=== PATIENT | female | born 1955 | race Caucasian/White ===

== ENCOUNTER 2020-09-06 09:29 | Outpatient (REF) | payer OTHER, SELFPAY ==
--- NOTE | 2020-09-06 | MM_ITS ---
EXAMINATION: BONE DENSITOMETRY CLINICAL INDICATION: Age-related osteoporosis without current pathological fracture. COMPARISON: Previous BD dated 08/30/2018 and baseline BD dated 07/29/2006. TECHNIQUE: Using a [id number] DXA System (software version: 13.1) manufactured by [employer], dual-energy x-ray absorptiometry was performed of the lumbar spine and left hip. The images are of good technical quality. Summary results are attached. FINDINGS: AP SPINE L1-L4: Current: BMD 0.824 g/cm2, Z-score -2.7, T-score -3.0, osteoporosis, 3.6% decrease from previous, 2.0% decrease from baseline (<5% change is not significant). Prior: BMD 0.855 g/cm2. Baseline: BMD 0.841 g/cm2. LEFT FEMUR, NECK: Current: BMD 0.567 g/cm2, Z-score -2.8, T-score -3.4, osteoporosis. Prior: BMD 0.766 g/cm2. Baseline: BMD 0.825 g/cm2. LEFT FEMUR, TOTAL: Current: BMD 0.761 g/cm2, Z-score -1.7, T-score -2.0, osteopenia, 13.6% decrease from previous, 20.1% decrease from baseline (<5% change is not significant). Prior: BMD 0.881 g/cm2. Baseline: BMD 0.953 g/cm2. IDENTIFIED RISK FACTORS: Early menopause, secondary osteoporosis, osteoporosis, hysterectomy, bilateral oophorectomy. HISTORY OF FRACTURE: None listed. MEDICATIONS: Multivitamin. MM/XR DEXA axial skeleton IMPRESSION: 1. DIAGNOSIS: Osteoporosis based on the lowest T-score value of -3.4 in the femoral neck applying World Health Organization criteria. 2. 10-YEAR FRACTURE RISK PREDICTION, FRAX: Major osteoporotic fracture (clinical spine, forearm, hip or shoulder) 16.7%. Hip fracture 5.5%. 3. Treatment Recommendations: NOF guidelines recommend consideration for treatment in postmenopausal women and men age 50 and older presenting with the following: -A hip or vertebral (clinical or morphometric) fracture. -T-score less than or equal to -2.5 at the femoral neck or spine after appropriate evaluation to exclude secondary causes. -Low bone mass at the hip or spine and a 10-year fracture probability by FRAX of greater than or equal to 3% for hip fracture or greater than or equal to 20% for major osteoporotic fracture based on the [place] adapted WHO algorithm. 4. Other Recommendations: All treatment decisions require clinical judgment and consideration of individual patient factors, including patient preferences, comorbidities, previous drug use, risk factors not captured in the FRAX model (e.g. frailty, falls, vitamin D deficiency, increased bone turnover, interval significant decline in bone density) and possible under or overestimation of fracture risk by FRAX. Additional medical evaluation for secondary cause of low bone mineral density may be appropriate. FUTURE SCAN RECOMMENDATION: People with diagnosed cases of osteoporosis or at high risk for fracture should have regular bone mineral density tests. For patients eligible for Medicare, routine testing is allowed once every 2 years. The testing frequency can be increased to one year for patients who have rapidly progressing disease, those who are receiving or discontinuing medical therapy to restore bone mass, or have additional risk factors.
== END 2020-09-06 09:30 | disposition home or self-care (01) ==
LOC: HO.MAMMO 09:29
PROVIDERS: Visit Provider Internal Medicine
DX: M81.0 Age-related osteoporosis without current pathological fracture (principal)
CPT/HCPCS: 77080

== ENCOUNTER 2021-02-28 10:51 | Outpatient (REF) | payer OTHER, SELFPAY | END 2021-02-28 10:52 | disposition home or self-care (01) | LOC: HO.LNP 10:51 | PROVIDERS: PCP Internal Medicine; Visit Provider Internal Medicine | DX: Z13.89 Encounter for screening for other disorder (principal) ==

== ENCOUNTER 2021-02-28 10:52 | Outpatient (REF) | payer OTHER, SELFPAY ==
[2021-02-28 10:58] LABS: MANUAL DIFF FLAG NO
[2021-02-28 12:22] LABS: Basophils Absolute Auto 0.1 X10*3/uL (0.0-0.2); Basophils Percent Auto 0.5 % (0-2); Eosinophils Absolute Auto 0.2 X10*3/uL (0.0-0.4); Eosinophils Percent Auto 2.1 % (0-4); Hematocrit 39.6 % (37-47); Hemoglobin 12.8 g/dl (12.0-16.0); Imm Gran Abs Auto 0.03 X10*3/uL (0.00-0.03); Imm Gran Pct Auto 0.3 % (0.0-0.4); Lymphocytes Absolute Auto 3.2 X10*3/uL (1.2-4.9); Mean Corpuscular HGB Conc 32.3 g/dl (31.0-35.0); Mean Corpuscular Volume 89.6 fL (80-98); Mean Platelet Volume 10.3 fL (9.4-12.3); Monocytes Absolute Auto 0.8 X10*3/uL (0.1-1.2); Neutrophils Absolute Auto 6.7 X10*3/uL (2.0-8.3); Neutrophils Percent Auto 61.1 % (45-73); Platelet Count 344 X10*3/uL (160-400); Red Blood Count 4.42 X10*6/uL (4.20-5.50); Red Cell Distribution Width 14.6 % (11.0-16.0); White Blood Count 10.9 X10*3/uL (4.8-10.8)
[2021-02-28 12:28] LABS: Estimated Average Glucose 160 mg/dL; Hemoglobin A1c % 7.2 %
[2021-02-28 12:55] LABS: Alanine Aminotransferase 27 U/L (0-31); Albumin Level 4.1 g/dL (3.5-5.0); Alkaline Phosphatase 72 U/L (39-117); Anion Gap 17 (12-20); Aspartate Amino Transferase 26 U/L (5-31); Bilirubin Total 0.7 mg/dL (0.0-1.0); Blood Urea Nitrogen 18 mg/dL (9-16); Calcium 9.7 mg/dL (8.4-10.2); Carbon Dioxide 23 mmol/L (22-29); Chloride 105 mmol/L (96-108); Cholesterol 111 mg/dL; Estimated Glomerular Filt Rate > 60; Glucose Fasting 82 mg/dL (60-99); HDL Cholesterol 64 mg/dL; LDL Cholesterol Calculated 17 mg/dl; Potassium 3.9 mmol/L (3.3-5.1); Sodium 141 mmol/L (135-145); Total Protein 7.2 g/dL (6.5-8.0); Triglycerides 151 mg/dL
[2021-02-28 12:57] LABS: Glucose Urine UA NEG (NEG); Leukocyte Esterase Urine NEG (NEG); Nitrite Urine NEG (NEG); PH 5.5 (5.0-8.0); Specific Gravity - Urine 1.025 (1.005-1.025); Urine Blood NEG (NEG); Urine Ketones NEG (NEG); Urine Protein NEG (NEG-TRACE)
[2021-02-28 13:07] LABS: Appearance Urine CLEAR; Color Urine YELLOW
[2021-02-28 13:33] LABS: Microalbum/Creatinine Ratio Ur 21.1 ug/mg cr
[2021-02-28 13:41] LABS: Reflex LDLD? No
== END 2021-02-28 10:53 | disposition home or self-care (01) ==
LOC: HO.LNP 10:52
PROVIDERS: Visit Provider Internal Medicine
DX: Z00.00 Encounter for general adult medical examination without abnormal findings (principal); I10 Essential (primary) hypertension; E78.00 Pure hypercholesterolemia, unspecified; E11.9 Type 2 diabetes mellitus without complications
CPT/HCPCS: 80053; 80061; 81003; 82043; 83036; 85025

== ENCOUNTER 2021-06-12 10:19 | Outpatient (REF) | payer OTHER, SELFPAY ==
[2021-06-12 11:17] LABS: Estimated Average Glucose 192 mg/dL; Hemoglobin A1c % 8.3 %
[2021-06-12 11:30] LABS: Alanine Aminotransferase 35 U/L (0-31); Albumin Level 4.1 g/dL (3.5-5.0); Alkaline Phosphatase 73 U/L (39-117); Aspartate Amino Transferase 29 U/L (5-31); Bilirubin Direct 0.3 mg/dL (0.0-0.5); Bilirubin Total 0.7 mg/dL (0.0-1.0); Cholesterol 115 mg/dL; Glucose Fasting 79 mg/dL (60-99); HDL Cholesterol 68 mg/dL; LDL Cholesterol Calculated 26 mg/dl; Total Protein 7.1 g/dL (6.5-8.0); Triglycerides 108 mg/dL
[2021-06-12 12:14] LABS: Reflex LDLD? No
== END 2021-06-12 10:20 | disposition home or self-care (01) ==
LOC: HO.LNP 10:19
PROVIDERS: Visit Provider Internal Medicine
DX: E11.9 Type 2 diabetes mellitus without complications (principal); E78.00 Pure hypercholesterolemia, unspecified
CPT/HCPCS: 80061; 80076; 82947; 83036

== ENCOUNTER 2021-11-04 13:52 | Emergency (ER) | payer OTHER, SELFPAY ==
--- NOTE | ~2021-11-04 | XR_ITS ---
EXAMINATION: XR CHEST CLINICAL INFORMATION: Shortness of breath COMPARISON: Previous chest x-ray most recent December 2016 TECHNIQUE: Frontal view of the chest was obtained. FINDINGS: The cardiac and mediastinal contours are stable. There are increased central hilar lung markings. Differential would include airways disease, atypical interstitial pneumonia and pulmonary venous redistribution/mild pulmonary edema. There is linear scarring or subsegmental atelectasis in the right upper lobe. The lungs are otherwise clear. There is no pleural effusion or pneumothorax. There are degenerative changes of the spine. XR/XR chest 1V IMPRESSION: Increased central hilar markings. Differential would include airways disease/bronchial wall thickening, atypical interstitial pneumonia and pulmonary edema.
[2021-11-04 15:13] VITALS: BP 146/76; PULSE 89; RESP 19; TEMP 36.5; O2SAT 96; BMI 39.3
[2021-11-04 15:36] LABS: MANUAL DIFF FLAG NO
[2021-11-04 15:38] LABS: Basophils Percent Auto 0.3 % (0-2); Hematocrit 39.9 % (37.0-47.0); Hemoglobin 12.8 g/dl (12.0-16.0); Imm Gran Abs Auto 0.02 X10*3/uL (0.00-0.03); Imm Gran Pct Auto 0.3 % (0.0-0.4); Lymphocytes Absolute Auto 0.7 X10*3/uL (1.2-4.9); Lymphocytes Percent Auto 11.1 % (20-40); Mean Corpuscular HGB Conc 32.1 g/dl (31.0-35.0); Mean Corpuscular Hemoglobin 29.2 pg (27.0-33.0); Mean Corpuscular Volume 90.9 fL (80.0-98.0); Mean Platelet Volume 9.8 fL (9.4-12.3); Monocytes Absolute Auto 0.5 X10*3/uL (0.1-1.2); Monocytes Percent Auto 7.8 % (2-11); Neutrophils Absolute Auto 5.2 x10*3/uL (2.0-8.3); Neutrophils Percent Auto 80.5 % (45-73); Platelet Count 262 X10*3/uL (160-400); Red Blood Count 4.39 X10*6/uL (4.20-5.50); Red Cell Distribution Width 14.7 % (11.0-16.0); White Blood Count 6.4 X10*3/uL (4.8-10.8)
[2021-11-04 15:55] LABS: Anion Gap 16 (12-20); Blood Urea Nitrogen 10 mg/dL (9-16); Carbon Dioxide 25 mmol/L (22-29); Chloride 100 mmol/L (96-108); Creatinine Clr Calc Pharmacy 64.5; Estimated Glomerular Filt Rate 59; Glucose Random 258 mg/dL (60-115); Potassium 3.8 mmol/L (3.3-5.1); Sodium 137 mmol/L (135-145)
[2021-11-04 16:04] LABS: B Type Natriuretic Peptide 12 pg/mL (<100)
[2021-11-04 21:00] VITALS: BP 159/77; PULSE 85; RESP 18; TEMP 36.7; O2SAT 95
--- NOTE | 2021-11-04 21:14 | ED.SOB ---
HPI - SOB/Dyspnea General Chief Complaint: Dyspnea Stated Complaint: Pneumonia Time Seen by Provider: 11/04/21 21:14 Source: patient Mode of arrival: ambulatory Limitations: no limitations History of Present Illness HPI Narrative: Patient with history of asthma already vaccinated against COVID not received a booster dose diagnosed with COVID 10 days ago complaining of increased dry cough for last 4 days speech limited she takes a deep breath no chest pain no fever no loss of taste sensation patient has not received any steroids during the course of COVID patient trying to use inhaler without much relief Related Data Previous Rx's Medication Instructions Recorded codeine 10 mg-guaifenesin 100 mg/5 10 ml PO Q6-8H PRN #237 ml 11/04/21 mL oral liquid dexamethasone 6 mg tablet 6 mg PO DAILY #6 tab 11/04/21 (Decadron) Allergies Allergy/AdvReac Type Severity Reaction Status Date / Time No Known Allergies Allergy Verified 11/04/21 15:13 Review of Systems Review of Systems: Yes all other systems are reviewed and are negative [facility] Past Medical History Medical History Asthma CAD (coronary artery disease) Diabetes Rheumatoid arthritis Social History Social History Alcohol intake: never Use of substances other than those prescribed or required for medical reasons: No Advance Directives: No Advance Directives Information Provided: No Patient : No Physical Exam Vital Signs: Vital Signs: Last Vital Signs Temp 98.2 F 11/04/21 23:39 Pulse 85 11/05/21 00:16 Resp 18 11/05/21 00:16 BP 125/83 11/04/21 23:39 Pulse Ox 91 L 11/04/21 23:39 BMI result Body Mass Index 39.3 Appearance: Alert. Oriented X3. No acute distress. Eyes: No pallor or icterus ENT: Pharynx normal. Oral Mucosa moist Neck: Normal inspection. Neck supple. CVS: Normal heart rate and rhythm. Pulses normal. Respiratory: No respiratory distress. Equal air entry bilateral, bilateral wheezing and rhonchi increased dry cough on deep inspiration Abdomen: Soft and nontender. Bowel sounds are present, no mass palpable, no CVA tenderness Skin: Skin warm and dry. Normal skin color. Normal skin turgor. Extremities: No lower extremity edema. No calf tenderness Neuro: Oriented X 3. MDM - SOB/Dyspnea Lab Data Result diagrams: 11/04/21 15:30 11/04/21 15:30 Labs: Lab Results 11/04/21 11/04/21 11/04/21 Range/Units 15:30 15:30 15:30 WBC 6.4 (4.8-10.8) X10*3/uL RBC 4.39 (4.20-5.50) X10*6/uL Hgb 12.8 (12.0-16.0) g/dl Hct 39.9 (37.0-47.0) % MCV 90.9 (80.0-98.0) fL MCH 29.2 (27.0-33.0) pg MCHC 32.1 (31.0-35.0) g/dl RDW 14.7 (11.0-16.0) % Plt Count 262 (160-400) X10*3/uL MPV 9.8 (9.4-12.3) fL Immature Gran % (Auto) 0.3 (0.0-0.4) % Neut % (Auto) 80.5 H (45-73) % Lymph % (Auto) 11.1 L (20-40) % [place] % (Auto) 7.8 (2-11) % Eos % (Auto) 0.0 (0-4) % Baso % (Auto) 0.3 (0-2) % Lymph # (Auto) 0.7 L (1.2-4.9) X10*3/uL [place] # (Auto) 0.5 (0.1-1.2) X10*3/uL Eos # (Auto) 0.0 (0.0-0.4) X10*3/uL Baso # (Auto) 0.0 (0.0-0.2) X10*3/uL Abs Immat Gran (auto) 0.02 (0.00-0.03) X10*3/uL Absolute Neuts (auto) 5.2 (2.0-8.3) x10*3/uL Absolute Nucleated RBC 0.000 (0.0-0.012) X10*3/uL Nucleated RBC % (auto) 0.0 (0.0-0.2) /100WBC Sodium 137 (135-145) mmol/L Potassium 3.8 (3.3-5.1) mmol/L Chloride 100 (96-108) mmol/L Carbon Dioxide 25 (22-29) mmol/L Anion Gap 16 (12-20) BUN 10 (9-16) mg/dL Creatinine 0.96 (0.5-1.4) mg/dL Estim Creat Clear Calc 64.5 Estimated GFR 59 Random Glucose 258 H (60-115) mg/dL Calcium 9.0 D (8.4-10.2) mg/dL B-Natriuretic Peptide 12 (<100) pg/mL COVID-19 (GERI) (Negative) COVID-19 Clin Com 11/04/21 Range/Units 23:38 WBC (4.8-10.8) X10*3/uL RBC (4.20-5.50) X10*6/uL Hgb (12.0-16.0) g/dl Hct (37.0-47.0) % MCV (80.0-98.0) fL MCH (27.0-33.0) pg MCHC (31.0-35.0) g/dl RDW (11.0-16.0) % Plt Count (160-400) X10*3/uL MPV (9.4-12.3) fL Immature Gran % (Auto) (0.0-0.4) % Neut % (Auto) (45-73) % Lymph % (Auto) (20-40) % [place] % (Auto) (2-11) % Eos % (Auto) (0-4) % Baso % (Auto) (0-2) % Lymph # (Auto) (1.2-4.9) X10*3/uL [place] # (Auto) (0.1-1.2) X10*3/uL Eos # (Auto) (0.0-0.4) X10*3/uL Baso # (Auto) (0.0-0.2) X10*3/uL Abs Immat Gran (auto) (0.00-0.03) X10*3/uL Absolute Neuts (auto) (2.0-8.3) x10*3/uL Absolute Nucleated RBC (0.0-0.012) X10*3/uL Nucleated RBC % (auto) (0.0-0.2) /100WBC Sodium (135-145) mmol/L Potassium (3.3-5.1) mmol/L Chloride (96-108) mmol/L Carbon Dioxide (22-29) mmol/L Anion Gap (12-20) BUN (9-16) mg/dL Creatinine (0.5-1.4) mg/dL Estim Creat Clear Calc Estimated GFR Random Glucose (60-115) mg/dL Calcium (8.4-10.2) mg/dL B-Natriuretic Peptide (<100) pg/mL COVID-19 (GERI) Positive A (Negative) COVID-19 Clin Com See Note Discharge Plan Discharge Clinical Impression: Acute asthmatic bronchitis Patient Disposition: Home, Self-Care Instructions: Asthma (ED), Acute Bronchitis (ED) Additional Instructions: Continues inhaler/nebulizing treatment every 4-6 hours as needed Decadron as advised Check blood sugar it may increase after taking steroids and increase the dose of insulin to 35 units while taking Decadron Cough syrup as prescribed Report to the ER/PCP if not better Prescriptions: New dexamethasone [Decadron] 6 mg tablet 6 mg PO DAILY Qty: 6 0RF codeine-guaifenesin 10-100 mg/5 mL liquid 10 ml PO Q6-8H PRN (Reason: Cough) Qty: 237 0RF
--- NOTE | 2021-11-04 21:31 | PC.NURSE ---
called respiratory for updraft, they will be down shortly
[2021-11-04] MEDS: dexAMETHasone 2 MG TABLET 10 MG PO (21:48)
[2021-11-04] MEDS: guaiFEN/Codeine SF 200/20/10ML 10 ML LIQUID PO (21:48)
[2021-11-04 21:49] VITALS: BP 137/70; PULSE 76; RESP 18; TEMP 36.9; O2SAT 95
--- NOTE | 2021-11-04 21:50 | PC.NURSE ---
patient a&ox3, vss, no c/o pain or discomfort, pt medicated per order, will continue to monitor
[2021-11-04] MEDS: Albuterol Sulfate (0.083%) 2.5 MG/3 ML VIAL.NEB 5 MG INHALE ×2 (22:02→22:06)
[2021-11-04] MEDS: Albuterol/Iprat 2.5/0.5MG 3 ML AMPUL.NEB INHALE ×2 (22:02→22:06)
[2021-11-04 22:09] VITALS: PULSE 68; RESP 18; O2SAT 100
--- NOTE | 2021-11-04 23:15 | PC.NURSE ---
pt a&ox3, reports symptoms have improved with breathing treatments, still has dry cough and occasional SOB, vss.
[2021-11-04 23:39] VITALS: BP 125/83; PULSE 89; RESP 16; TEMP 36.8; O2SAT 91
[2021-11-04 23:59] LABS: COVID-19 Test Positive (Negative)
[2021-11-05] MEDS: Albuterol Sulfate (0.083%) 2.5 MG/3 ML VIAL.NEB 5 MG INHALE (00:14)
[2021-11-05 00:16] VITALS: PULSE 85; RESP 18; O2SAT 95
[2021-11-05 00:55] VITALS: BP 146/59; PULSE 97; RESP 18; O2SAT 94
== END 2021-11-05 01:06 | disposition home or self-care (01) ==
PROVIDERS: Emergency Provider Internal Medicine; PCP Internal Medicine
DX: J18.9 Pneumonia, unspecified organism (principal); J45.909 Unspecified asthma, uncomplicated; R06.00 Dyspnea, unspecified; I25.10 Atherosclerotic heart disease of native coronary artery without angina pectoris; Z20.822 Contact with and (suspected) exposure to COVID-19; Z79.899 Other long term (current) drug therapy
CPT/HCPCS: 36415; 71045; 80048; 83880; 85025; 87635; 94640; 94644; 99284; 99285; J8540

== ENCOUNTER 2022-03-10 11:06 | Outpatient (REF) | payer OTHER, SELFPAY ==
[2022-03-10 11:10] LABS: MANUAL DIFF FLAG NO
[2022-03-10 11:20] LABS: Basophils Absolute Auto 0.1 X10*3/uL (0.0-0.2); Basophils Percent Auto 0.5 % (0-2); Eosinophils Absolute Auto 0.3 X10*3/uL (0.0-0.4); Eosinophils Percent Auto 2.7 % (0-4); Hematocrit 38.2 % (37.0-47.0); Hemoglobin 12.6 g/dl (12.0-16.0); Imm Gran Abs Auto 0.02 X10*3/uL (0.00-0.03); Imm Gran Pct Auto 0.2 % (0.0-0.4); Lymphocytes Absolute Auto 2.5 X10*3/uL (1.2-4.9); Lymphocytes Percent Auto 26.2 % (20-40); Mean Corpuscular Hemoglobin 30.5 pg (27.0-33.0); Mean Corpuscular Volume 92.5 fL (80.0-98.0); Mean Platelet Volume 10.6 fL (9.4-12.3); Monocytes Absolute Auto 0.6 X10*3/uL (0.1-1.2); Monocytes Percent Auto 5.9 % (2-11); Neutrophils Absolute Auto 6.1 x10*3/uL (2.0-8.3); Neutrophils Percent Auto 64.5 % (45-73); Platelet Count 315 X10*3/uL (160-400); Red Blood Count 4.13 X10*6/uL (4.20-5.50); Red Cell Distribution Width 14.6 % (11.0-16.0); White Blood Count 9.5 X10*3/uL (4.8-10.8)
[2022-03-10 11:23] LABS: Appearance Urine HAZY; Color Urine YELLOW; Glucose Urine UA NEG (NEG); Leukocyte Esterase Urine NEG (NEG); Nitrite Urine NEG (NEG); PH 5.5 (5.0-8.0); Specific Gravity - Urine >= 1.030 (1.005-1.025); Urine Blood TRACE (NEG); Urine Ketones NEG (NEG); Urine Protein TRACE MG/DL (NEG-TRACE)
[2022-03-10 11:32] LABS: Mucus Urine 2+ /LPF; Squamous Epithelial Cell Urine 1+ /LPF; WBC Urine 0 /HPF (0-4)
[2022-03-10 11:33] LABS: RBC Urine 0-2 /HPF (0)
[2022-03-10 11:39] LABS: Alanine Aminotransferase 35 U/L (0-31); Albumin Level 4.1 g/dL (3.5-5.0); Alkaline Phosphatase 72 U/L (39-117); Anion Gap 13 (12-20); Aspartate Amino Transferase 33 U/L (5-31); Bilirubin Total 0.6 mg/dL (0.0-1.0); Blood Urea Nitrogen 15 mg/dL (9-16); Calcium 9.6 mg/dL (8.4-10.2); Carbon Dioxide 27 mmol/L (22-29); Chloride 103 mmol/L (96-108); Cholesterol 119 mg/dL; Estimated Average Glucose 180 mg/dL; Estimated Glomerular Filt Rate > 60; Glucose Fasting 123 mg/dL (60-99); HDL Cholesterol 57 mg/dL; Hemoglobin A1c % 7.9 %; LDL Cholesterol Calculated 31 mg/dl; Potassium 3.9 mmol/L (3.3-5.1); Sodium 139 mmol/L (135-145); Total Protein 7.2 g/dL (6.5-8.0); Triglycerides 157 mg/dL
[2022-03-10 12:28] LABS: Creatinine Urine 205.12 mg/dL; Microalbum/Creatinine Ratio Ur 22.4 ug/mg cr
== END 2022-03-10 11:07 | disposition home or self-care (01) ==
LOC: HO.LNP 11:06
PROVIDERS: Visit Provider Internal Medicine
DX: E11.9 Type 2 diabetes mellitus without complications (principal); E78.00 Pure hypercholesterolemia, unspecified; I10 Essential (primary) hypertension
CPT/HCPCS: 80053; 80061; 81001; 82043; 83036; 85025

== ENCOUNTER → 2022-06-03 09:46 | Outpatient (BNVA) | payer OTHER, SELFPAY | PROVIDERS: PCP Internal Medicine; Visit Provider Internal Medicine Cardiovascular Disease | DX: I25.10 Atherosclerotic heart disease of native coronary artery without angina pectoris (principal); I10 Essential (primary) hypertension | CPT/HCPCS: 93005 ==

== ENCOUNTER → 2022-07-02 12:49 | Outpatient (REF) | payer OTHER, SELFPAY ==
--- NOTE | 2022-07-02 12:53 | CA_ITS ---
Transthoracic Echocardiogram Patient (Last, First, Middle): Kathie Nelson M Gender: Female Date of : 1955 Age: 66 Procedure Date: 07/02/2022 Procedure Type: Transthoracic Echocardiogram Location: OP Height: 157.48 cm Weight: 98.88 kg BSA: 1.98 m2 Heart Rate: 77 bpm BP: 128 / 72 mmHg [employer]: DAYTON Referring MD: Law Capps MD Litigation Attorney: Law Capps MD Symptoms: I10 - Essential (primary) hypertension Study Quality: Adequate w contrast ECG Rhythm: Sinus Conclusions: - 1. Normal LV systolic function with impaired relaxation filling pattern 2. Normal cardiac valvular Doppler 3. No gross pericardial effusion Findings Procedure Information Contrast agent, definity, is being given per protocol without apparent complications. Left Ventricle Normal left ventricular size, thickness, and systolic function. The visually estimated ejection fraction is between 65-70%. Spectral Doppler is indicative of an impaired relaxation filling pattern. E/E prime ratio is between 8 and 15 consistent with indeterminate filling pressures. Right Ventricle The right ventricle was not well visualized. Atria The left atrium is normal in size. Interatrial shunt cannot be excluded. The right atrium was not well visualized. Aortic Valve The aortic valve was not well visualized. There is no aortic valve stenosis. There is no aortic valve regurgitation. Mitral Valve Likely normal mitral valve structure and function. There is trace mitral valve regurgitation. There is no mitral valve stenosis. Pulmonic Valve The pulmonic valve was not well visualized. Tricuspid Valve The tricuspid valve was not well visualized. Tricuspid regurgitation envelope is inadequate for calculation of right ventricular systolic pressure. Normal right atrial pressure. Great Vessels All visible segments of the aorta are normal in size. The pulmonary artery was not well visualized. Venous The inferior vena cava is normal in size and collapses greater than 50% with inspiration. Pericardium/Pleural There is no evidence of pericardial effusion. Prior Study Comparison No prior study available for comparison. Measurements 2D Linear Measurements IVSd: 0.63 0.6-0.9/0.6-1.0 cm LVIDd: 4.52 3.9-5.3/4.2-5.9 cm LVIDd Index: 2.28 2.4-3.2/2.2-3.1 cm/m2 LVIDs: 2.74 2.0-3.6 cm LVPWd: 0.65 0.7-1.1 cm LA Diam: 3.30 2.7-3.8/3.0-4.0 cm LAIDs Index: 1.67 1.5-2.3 cm/m2 LV Mass: 106.56 67-162/88-224 g LV Mass Index: 53.82 43-95/49-115 g/m2 LVOT Diam: 1.90 3.0+(-)1.3 cm 2D Systolic Function EF 4C: 60.40 >55% EF 2C: 72.10 >55% EF BiP: 67.30 >55% Mitral Valve MV Pk E: 1.07 MV PK A: 0.93 MV Decel Time: 224.00 E/A: 1.10 E'Lateral: 10.90 E'Medial: 5.00 E/E' Med: 21.40 E/E' Lat: 9.80 PHT: 65.00 MVA PHT: 3.38 Decel Leake: 4.77 Aortic Valve AoV Pk Jean-Claude: 1.50 AoV Mn Jean-Claude: 1.03 AoV VTI: 0.32 AoV Pk Grad: 9.00 Aov Mn Grad: 5.00 MICHELLE Cont.VTI: 1.88 LVOT LVOT Pk Jean-Claude: 0.89 LVOT Mn Jean-Claude: 0.61 LVOT VTI: 0.21 LVOT Pk Grad: 3.00 LVOT Mn Grad: 2.00 LVOT Diam: 1.90 LVOT Area: 2.84 Diastolic Function MV Pk E: 1.07 MV Pk A: 0.93 E/A: 1.10 E'Medial: 5.00 E/E' Med: 21.40 E' Laterial: 10.90 E/E' Lat: 9.80 Right Ventricle TAPSE (mm): 21.90 TVS' Jean-Claude: 10.80 Tricuspid Valve RA Press: 3.00 Great Vessels Aorta Sinus of Valsalva: 2.70 2.0-3.5 cm Ao Asc: 2.50 2.1-3.4 cm Pulmonary Valve PV Pk Jean-Claude: 1.03 Peak PV Grad: 4.00 Updated in Other Vendor System with Status of Final Law Capps MD electronically signed on 07/03/2022 12:46:19 PM with status of Final
== END ==
LOC: HO.CARD 12:49
PROVIDERS: Visit Provider Internal Medicine Cardiovascular Disease
DX: I10 Essential (primary) hypertension (principal); I25.10 Atherosclerotic heart disease of native coronary artery without angina pectoris; M06.9 Rheumatoid arthritis, unspecified
CPT/HCPCS: 93306; Q9957

== ENCOUNTER 2022-09-14 11:06 | Outpatient (REF) | payer MEDICARE, OTHER, SELFPAY ==
[2022-09-14 11:58] LABS: Alanine Aminotransferase 44 U/L (0-31); Albumin Level 4.4 g/dL (3.5-5.0); Alkaline Phosphatase 90 U/L (39-117); Aspartate Amino Transferase 46 U/L (5-31); Bilirubin Direct 0.3 mg/dL (0.0-0.5); Bilirubin Total 0.7 mg/dL (0.0-1.0); Cholesterol 122 mg/dL; Glucose Fasting 136 mg/dL (60-99); HDL Cholesterol 60 mg/dL; LDL Cholesterol Calculated 38 mg/dl; Total Protein 7.5 g/dL (6.5-8.0); Triglycerides 121 mg/dL
[2022-09-14 12:10] LABS: Estimated Average Glucose 177 mg/dL; Hemoglobin A1c % 7.8 %
[2022-09-14 13:34] LABS: Reflex LDLD? No
== END 2022-09-14 11:07 | disposition home or self-care (01) ==
LOC: HO.LNP 11:06
PROVIDERS: Visit Provider Internal Medicine
DX: E11.9 Type 2 diabetes mellitus without complications (principal); E78.00 Pure hypercholesterolemia, unspecified
CPT/HCPCS: 80061; 80076; 82947; 83036

== ENCOUNTER 2022-12-24 10:33 | Outpatient (REF) | payer MEDICARE, OTHER, SELFPAY ==
[2022-12-24 11:16] LABS: Alanine Aminotransferase 53 U/L (0-31); Albumin Level 3.9 g/dL (3.5-5.0); Alkaline Phosphatase 83 U/L (39-117); Aspartate Amino Transferase 38 U/L (5-31); Bilirubin Direct 0.2 mg/dL (0.0-0.5); Bilirubin Total 0.8 mg/dL (0.0-1.0); Total Protein 6.6 g/dL (6.5-8.0)
== END 2022-12-24 10:34 | disposition home or self-care (01) ==
LOC: HO.LNP 10:33
PROVIDERS: Visit Provider Internal Medicine
DX: R74.8 Abnormal levels of other serum enzymes (principal)
CPT/HCPCS: 80076

== ENCOUNTER 2023-01-04 07:49 | Day surgery (SDC) | payer MEDICARE, OTHER, SELFPAY ==
[2022-12-30 11:24] VITALS: BMI 39.4
[2022-12-31 10:17] VITALS: BMI 40.0
--- NOTE | 2023-01-01 10:17 | MHC.SHP ---
Pre-Procedural Eval Section A Date of Service: 01/01/23 The patient is an INPATIENT: No Changes since office visit: No Cold of Flu in the past 2 weeks, No New Medical Problems, No Changes in Medication and No Patient answered all questions The History & Physical has been completed within 30 days and I have reviewed it.: Yes Section B Chief Complaint: Age-related nuclear cataract, right eye Allergies: Allergies Allergy/AdvReac Type Severity Reaction Status Date / Time No Known Allergies Allergy Verified 12/31/22 10:10 Plan Diagnosis/Plan: Unchanged I have reviewed the history and physical and performed a pertinent physical examination on my patient. No changes have occurred unless specified. Time Spent With Patient Time: Total time managing care of this patient today ____ minutes.
[2023-01-04 08:17] VITALS: BP 166/77; PULSE 81; RESP 20; TEMP 36.1; O2SAT 96
[2023-01-04 08:18] LABS: Glucose, Whole Blood 143 mg/dL (60-115)
[2023-01-04] MEDS: Cyclopentolate 1 % Ophth Sol 2 ML DRPBTL 1 DROP EYE-RIGHT ×3 (08:28→08:30)
[2023-01-04] MEDS: Ketorolac Tromethamine 0.5% Op 5 ML DROPS 1 DROP EYE-RIGHT ×3 (08:28→08:30)
[2023-01-04] MEDS: Tetracaine HCl/PF 0.5% Oph Sol 4 ML DROPS 1 DROP EYE-RIGHT (08:28)
[2023-01-04] MEDS: Phenylephrine HCL 2.5% Oph SoL 2 ML BOTTLE 1 DROP EYE-RIGHT ×3 (08:28→08:30)
[2023-01-04] MEDS: Tropicamide 1 % Ophth Sol 3 ML BTL 1 DROP EYE-RIGHT ×3 (08:28→08:30)
--- NOTE | 2023-01-04 08:47 | P.CONAN_ITS ---
Documented by User: Peter Clements MD 01/04/23 08:48 HPI - Anesthesia Eval Consult details Narrative: 67 F for PMFSH Active Problems Active Problems: All Active Problems (Updated 12/31/22 @ 10:15 by Jamaica Emerson, EFE) COVID-19 (Acute) Rheumatoid arthritis (Acute) HTN (hypertension) (Acute) CAD (coronary artery disease) (Acute) Past Medical History Medical History (Updated 12/31/22 @ 10:15 by Jamaica Emerson, RN) Asthma CAD (coronary artery disease) Cataract Diabetes Diabetes HTN (hypertension) Rheumatoid arthritis Wears dentures Surgical History Surgical History (Updated 12/31/22 @ 10:14 by Jamaica Emerson, RN) Hx of cholecystectomy Hx of colonoscopy Hx of hysterectomy Stented coronary artery Social History Social History (Updated 12/31/22 @ 10:22 by Jamaica Emerson RN) Are you a primary multi care technician to a significant other at home: No Do you presently have visiting nurse or other home services: No Alcohol intake: never Patient Tobacco Use Status: Never used Tobacco Use of substances other than those prescribed or required for medical reasons: No Have you been hit, kicked, punched, or otherwise hurt by someone within the past year? If so, by whom?: No Are you DNR?: No Advance Directives: No Advance Directives Information Provided: Yes Advance Directives on File: No Recently lost weight without trying: No Nutrition Risks: No Nutritional Risk Poor oral hygiene: No (full upper and lower denture) Meds Allergies Allergy/AdvReac Type Severity Reaction Status Date / Time No Known Allergies Allergy Verified 12/31/22 10:10 Active Medications: Current Medications Lactated Ringer's (Lr) 500 mls @ 50 mls/hr IVCONT .Q10H MARY Povidone Iodine (Povidone Iodine 5 % Ophth Soln 30 Ml Bottle) 1 appl EYE-RIGHT PREOP PRN PRN Reason: Pre-Op Surgical Implant Prophy Home Medications Medication Instructions Recorded Confirmed Last Taken Type albuterol sulfate 2.5 mg/3 mL 2.5 mg inhalation Q6H PRN 06/03/22 12/31/22 Unknown History (0.083 %) solution for nebulization Shortness Of Breath Or Wheezing alendronate 70 mg tablet 70 mg PO QWEEK 06/03/22 12/31/22 Unknown History celecoxib 200 mg capsule 200 mg PO DAILY 06/03/22 12/29/22 Unknown History etanercept 50 mg/mL (1 mL) 50 mg subcut QWEEK 06/03/22 12/31/22 Unknown History subcutaneous pen injector (Enbrel SureClick) fluticasone propionate 115 2 puff inhalation BID 06/03/22 12/29/22 Unknown History mcg-salmeterol 21 mcg/actuation HFA inhaler (Advair HFA) folic acid 1 mg tablet 1 mg PO DAILY 06/03/22 12/31/22 Unknown History insulin detemir U-100 100 unit/mL 40 unit subcut .DAILY@NOON 06/03/22 12/31/22 Unknown History (3 mL) subcutaneous pen (Levemir FlexTouch U-100 Insulin) metformin 500 mg tablet 1,000 mg PO DAILY@0730 06/03/22 12/31/22 Unknown History methotrexate sodium 2.5 mg tablet 12.5 mg PO QWEEK 06/03/22 12/29/22 Unknown History metoprolol succinate 50 mg 50 mg PO DAILY 06/03/22 12/29/22 Unknown History tablet,extended release 24 hr rosuvastatin 40 mg tablet 40 mg PO DAILY 06/03/22 12/29/22 Unknown History valsartan 80 1 tab PO DAILY 06/03/22 12/29/22 Unknown History mg-hydrochlorothiazide 12.5 mg tablet aspirin 81 mg tablet,delayed 81 mg PO DAILY 12/31/22 12/31/22 Unknown History release metformin 500 mg tablet 500 mg PO BEDTIME 12/31/22 12/31/22 Unknown History Exam Exam Date and Time: January 04, 2023 0847 Height,Weight and Vital Signs: Height 5 ft 2 in Weight 99.337 kg Last Vital Signs Temp 97 F 01/04/23 08:17 Pulse 81 01/04/23 08:17 Resp 20 01/04/23 08:17 BP 166/77 H 01/04/23 08:17 Pulse Ox 96 01/04/23 08:17 O2 Del Method Room Air 01/04/23 08:17 Pertinent Lab Results Pertinent Lab Results: Laboratory Tests 01/04/23 08:15 POC Glucose 143 H Documented by User: Hardik Abarca MD 01/04/23 13:14 [facility] Past Medical History Medical History (Updated 12/31/22 @ 10:15 by Jamaica Emerson, EFE) Asthma CAD (coronary artery disease) Cataract Diabetes Diabetes HTN (hypertension) Rheumatoid arthritis Wears dentures Family History Family history of problems with anesthesia: No Surgical History Surgical History (Updated 12/31/22 @ 10:14 by Jamaica Emerson RN) Hx of cholecystectomy Hx of colonoscopy Hx of hysterectomy Stented coronary artery History of Problems with Anesthesia: No Social History Social History (Updated 12/31/22 @ 10:22 by Jamaica Emerson RN) Are you a primary multi care technician to a significant other at home: No Do you presently have visiting nurse or other home services: No Alcohol intake: never Patient Tobacco Use Status: Never used Tobacco Use of substances other than those prescribed or required for medical reasons: No Have you been hit, kicked, punched, or otherwise hurt by someone within the past year? If so, by whom?: No Are you DNR?: No Advance Directives: No Advance Directives Information Provided: Yes Advance Directives on File: No Recently lost weight without trying: No Nutrition Risks: No Nutritional Risk Poor oral hygiene: No (full upper and lower denture) Meds Allergies Allergy/AdvReac Type Severity Reaction Status Date / Time No Known Allergies Allergy Verified 12/31/22 10:10 Home Medications Medication Instructions Recorded Confirmed Last Taken Type albuterol sulfate 2.5 mg/3 mL 2.5 mg inhalation Q6H PRN 06/03/22 12/31/22 Unknown History (0.083 %) solution for nebulization Shortness Of Breath Or Wheezing alendronate 70 mg tablet 70 mg PO QWEEK 06/03/22 12/31/22 Unknown History celecoxib 200 mg capsule 200 mg PO DAILY 06/03/22 12/29/22 Unknown History etanercept 50 mg/mL (1 mL) 50 mg subcut QWEEK 06/03/22 12/31/22 Unknown History subcutaneous pen injector (Enbrel SureClick) fluticasone propionate 115 2 puff inhalation BID 06/03/22 12/29/22 Unknown History mcg-salmeterol 21 mcg/actuation HFA inhaler (Advair HFA) folic acid 1 mg tablet 1 mg PO DAILY 06/03/22 12/31/22 Unknown History insulin detemir U-100 100 unit/mL 40 unit subcut .DAILY@NOON 06/03/22 12/31/22 Unknown History (3 mL) subcutaneous pen (Levemir FlexTouch U-100 Insulin) metformin 500 mg tablet 1,000 mg PO DAILY@0730 06/03/22 12/31/22 Unknown History methotrexate sodium 2.5 mg tablet 12.5 mg PO QWEEK 06/03/22 12/29/22 Unknown History metoprolol succinate 50 mg 50 mg PO DAILY 06/03/22 12/29/22 Unknown History tablet,extended release 24 hr rosuvastatin 40 mg tablet 40 mg PO DAILY 06/03/22 12/29/22 Unknown History valsartan 80 1 tab PO DAILY 06/03/22 12/29/22 Unknown History mg-hydrochlorothiazide 12.5 mg tablet aspirin 81 mg tablet,delayed 81 mg PO DAILY 12/31/22 12/31/22 Unknown History release metformin 500 mg tablet 500 mg PO BEDTIME 12/31/22 12/31/22 Unknown History Exam Airway Mallampati Class: II TM Dist: >3cm Neck ROM: Limited Heart: rrr Lungs: cta Assessment and Plan Assessment Anesthesia Assessment: Anesthesia Plan Discussed and Chart Reviewed Final Anesthetic Review Family History of Problems with Anesthesia: No History of Problems with Anesthesia: No NPO: Yes ASA Class: III Final Preanesthetic Review: No Changes in Pt Med Stat, Meds/Allgs Chart Reviewed, Consent Obtained/Reviewed and Anes Risks/Benef Reviewed Patient Risk: Intermediate Procedure Risk: Low Anesthetic Plan Anesthetic Plan: MAC: Disposition: Standard PACU
--- NOTE | 2023-01-04 09:36 | HO.PNOPHT ---
Ophthalmology Procedure Procedure Date of Service: 01/04/23 Ophthalmology Viscoelastic: Healkirill Marroquint Dual Pack Pro Ophthalmology Lenses: TECNIS [id number] (16.5) Procedure Notes: PREOPERATIVE DIAGNOSIS: Decreased visual acuity right eye secondary to cataract POSTOPERATIVE DIAGNOSIS: Same PROCEDURE: Right cataract extraction with intraocular lens insertion SURGEON: Gavin Farley M.D. ANESTHESIA: Topical/MAC ESTIMATED BLOOD LOSS: None COMPLICATIONS: None After obtaining informed consent, the patient was brought to the operating room suite and placed in the supine position. After adequate sedation per anesthesia, topical drops of Tetracaine were given to the right eye. The eye was then prepped and draped in the usual sterile fashion. The operating room microscope was then positioned over the operative eye and a lid speculum placed. A paracentesis was created. Viscoelastic was then instilled into the anterior chamber. A three plane incision was then created temporally, utilizing a 2.85 mm keratome. Capsulotomy forceps were then utilized to create a circular tear capsulotomy. Hydrodissection and hydrodelineation were carried out until adequate mobilization of the nucleus occurred. Phacoemulsification was then utilized to remove the dense central nucleus followed by removal of the cortical material utilizing the automated aspiration irrigation unit. Viscoelastic was instilled into the posterior capsular bag followed by placement of a posterior chamber intraocular lens without difficulty. The residual Viscoelastic was then removed utilizing the automated IA machine. The wound was checked and found to be watertight. The patient tolerated the procedure well and the lid speculum was removed. Intracameral injection of Vigamox 0.1 mL followed by a subtenon injection of Kenalog-40 0.2 mL were administered. The patient will be seen in the a.m.
[2023-01-04 10:03] VITALS: BP 158/75; PULSE 73; RESP 16; TEMP 36.6; O2SAT 94
== END 2023-01-04 10:12 | disposition home or self-care (01) ==
PROVIDERS: PCP Internal Medicine; Visit Provider Ophthalmology
PROC: (CPT 66985; principal; 2023-01-04 10:00)
DX: H25.11 Age-related nuclear cataract, right eye (principal); E11.9 Type 2 diabetes mellitus without complications; I10 Essential (primary) hypertension
CPT/HCPCS: 66984; 82947; J2250; J3010; J3301; V2632

== ENCOUNTER 2023-03-11 11:07 | Outpatient (REF) | payer MEDICARE, OTHER, SELFPAY ==
[2023-03-11 11:15] LABS: MANUAL DIFF FLAG NO
[2023-03-11 12:12] LABS: Basophils Absolute Auto 0.1 X10*3/uL (0.0-0.2); Basophils Percent Auto 0.8 % (0-2); Eosinophils Absolute Auto 0.3 X10*3/uL (0.0-0.4); Eosinophils Percent Auto 2.9 % (0-4); Hematocrit 39.6 % (37.0-47.0); Imm Gran Abs Auto 0.03 X10*3/uL (0.00-0.03); Imm Gran Pct Auto 0.3 % (0.0-0.4); Lymphocytes Percent Auto 30.6 % (20-40); Mean Corpuscular HGB Conc 32.8 g/dl (31.0-35.0); Mean Corpuscular Hemoglobin 30.4 pg (27.0-33.0); Mean Corpuscular Volume 92.7 fL (80.0-98.0); Mean Platelet Volume 10.7 fL (9.4-12.3); Monocytes Absolute Auto 0.8 X10*3/uL (0.1-1.2); Monocytes Percent Auto 7.6 % (2-11); Neutrophils Absolute Auto 5.7 x10*3/uL (2.0-8.3); Neutrophils Percent Auto 57.8 % (45-73); Platelet Count 329 X10*3/uL (160-400); Red Blood Count 4.27 X10*6/uL (4.20-5.50); Red Cell Distribution Width 14.9 % (11.0-16.0); White Blood Count 9.9 X10*3/uL (4.8-10.8)
[2023-03-11 12:15] LABS: Appearance Urine Clear; Color Urine Yellow; Glucose Urine UA Negative (Negative); Leukocyte Esterase Urine Negative (Negative); Nitrite Urine Negative (Negative); Specific Gravity - Urine 1.015 (1.005-1.025); Urine Blood Negative (Negative); Urine Ketones Negative (Negative); Urine Protein Negative (Neg-Trace)
[2023-03-11 12:19] LABS: Bacteria Urine None Seen (None Seen); Hyaline Casts Urine 0-2 /LPF (0-2); RBC Urine 0-2 /HPF (0-2); WBC Urine 0-5 /HPF (0-5)
[2023-03-11 12:24] LABS: Alanine Aminotransferase 33 U/L (0-31); Albumin Level 4.2 g/dL (3.5-5.0); Alkaline Phosphatase 75 U/L (39-117); Anion Gap 16 (12-20); Aspartate Amino Transferase 36 U/L (5-31); Bilirubin Direct 0.3 mg/dL (0.0-0.5); Bilirubin Total 0.9 mg/dL (0.0-1.0); Blood Urea Nitrogen 14 mg/dL (9-16); Calcium 9.8 mg/dL (8.4-10.2); Carbon Dioxide 26 mmol/L (22-29); Chloride 104 mmol/L (96-108); Cholesterol 109 mg/dL; Estimated Glomerular Filt Rate > 60; Glucose Fasting 99 mg/dL (60-99); HDL Cholesterol 57 mg/dL; LDL Cholesterol Calculated 30 mg/dl; Potassium 4.3 mmol/L (3.3-5.1); Sodium 142 mmol/L (135-145); Total Protein 7.1 g/dL (6.5-8.0); Triglycerides 110 mg/dL
[2023-03-11 12:29] LABS: Estimated Average Glucose 194 mg/dL; Hemoglobin A1c % 8.4 %
[2023-03-11 12:58] LABS: Creatinine Urine 108.28 mg/dL; Microalbum/Creatinine Ratio Ur 31.4 ug/mg cr
== END 2023-03-11 11:08 | disposition home or self-care (01) ==
LOC: HO.LNP 11:07
PROVIDERS: Visit Provider Internal Medicine
DX: I10 Essential (primary) hypertension (principal); E11.9 Type 2 diabetes mellitus without complications; E78.00 Pure hypercholesterolemia, unspecified
CPT/HCPCS: 80053; 80061; 80076; 81001; 82043; 82248; 83036; 85025

== ENCOUNTER 2023-03-15 06:49 | Day surgery (SDC) | payer MEDICARE, OTHER, SELFPAY ==
[2022-12-30 11:25] VITALS: BMI 39.4
[2022-12-31 10:19] VITALS: BMI 40.0
--- NOTE | 2023-01-14 15:53 | MHC.SHP ---
Pre-Procedural Eval Section A Date of Service: 01/14/23 The patient is an INPATIENT: No Changes since office visit: No Cold of Flu in the past 2 weeks, No New Medical Problems, No Changes in Medication and No Patient answered all questions The History & Physical has been completed within 30 days and I have reviewed it.: Yes Section B Chief Complaint: Age-related nuclear cataract, left eye Allergies: Allergies Allergy/AdvReac Type Severity Reaction Status Date / Time No Known Allergies Allergy Verified 12/31/22 10:10 Plan Diagnosis/Plan: Unchanged I have reviewed the history and physical and performed a pertinent physical examination on my patient. No changes have occurred unless specified. Time Spent With Patient Time: Total time managing care of this patient today ____ minutes.
--- NOTE | 2023-01-18 09:22 | HO.PNOPHT ---
Ophthalmology Procedure Procedure Date of Service: 01/18/23 Ophthalmology Viscoelastic: Healkirill Marroquint Dual Pack Pro Ophthalmology Lenses: TECIOANA [id number] (17) Procedure Notes: PREOPERATIVE DIAGNOSIS: Decreased visual acuity left eye secondary to cataract POSTOPERATIVE DIAGNOSIS: Same PROCEDURE: Left cataract extraction with intraocular lens insertion SURGEON: Gavin Farley M.D. ANESTHESIA: Topical/MAC ESTIMATED BLOOD LOSS: None COMPLICATIONS: None After obtaining informed consent, the patient was brought to the operation room suite and placed in the supine position. After adequate sedation per anesthesia, topical drops of Tetracaine were given to the left eye. The eye was then prepped and draped in the usual sterile fashion. The operating room microscope was then positioned over the operative eye and a lid speculum placed. A paracentesis was created. Viscoelastic was then instilled into the anterior chamber. A three plane incision was then created temporally, utilizing a 2.85 mm keratome. Capsulotomy forceps were then utilized to create a circular tear capsulotomy. Hydrodissection and hydrodelineation were carried out until adequate mobilization of the nucleus occurred. Phacoemulsification was then utilized to remove the dense central nucleus followed by removal of the cortical material utilizing the automated aspiration irrigation unit. Viscoat elastic was instilled into the posterior capsular bag followed by placement of a posterior chamber intraocular lens without difficulty. The residual Viscoat elastic was then removed utilizing the automated IA machine. The wound was check and found to be watertight. The patient tolerated the procedure well and the lid speculum was removed. Intracameral injection of Vigamox 0.1 mL followed by a subtenon injection of Kenalog-40 0.2 mL were administered. The patient will be seen in the a.m.
[2023-03-09 08:54] VITALS: BMI 40.1
--- NOTE | 2023-03-12 08:06 | MHC.SHP ---
Pre-Procedural Eval Section A Date of Service: 03/12/23 The patient is an INPATIENT: No Changes since office visit: No Cold of Flu in the past 2 weeks, No New Medical Problems, No Changes in Medication and No Patient answered all questions The History & Physical has been completed within 30 days and I have reviewed it.: Yes Section B Chief Complaint: Age-related nuclear cataract, left eye Allergies: Allergies Allergy/AdvReac Type Severity Reaction Status Date / Time No Known Allergies Allergy Verified 12/31/22 10:10 Plan Diagnosis/Plan: Unchanged I have reviewed the history and physical and performed a pertinent physical examination on my patient. No changes have occurred unless specified. Time Spent With Patient Time: Total time managing care of this patient today ____ minutes.
--- NOTE | 2023-03-12 09:29 | HO.ANESPROP2 ---
Documented by User: Nona Sweeney NP 03/12/23 09:30 HPI - Anesthesia Eval Consult details Narrative: 67yo F for Left Cataract Multifocal with IOL Insertion PCP cleared No previous cataract PMFSH Active Problems Active Problems: All Active Problems (Updated 03/09/23 @ 08:57 by Zakiya Hoff RN) COVID-19 (Acute) Rheumatoid arthritis (Acute) HTN (hypertension) (Acute) CAD (coronary artery disease) (Acute) Past Medical History Medical History Asthma CAD (coronary artery disease) Cataract Diabetes HTN (hypertension) Rheumatoid arthritis Wears dentures Family History Family history of problems with anesthesia: No Surgical History Surgical History Hx of cholecystectomy Hx of colonoscopy Hx of hysterectomy Hx of right cataract extraction Stented coronary artery History of Problems with Anesthesia: No Social History Social History Are you a primary manager wound care to a significant other at home: No Do you presently have visiting nurse or other home services: No Alcohol intake: never Patient Tobacco Use Status: Never used Tobacco Use of substances other than those prescribed or required for medical reasons: No Have you been hit, kicked, punched, or otherwise hurt by someone within the past year? If so, by whom?: No Are you DNR?: No Advance Directives: No Advance Directives Information Provided: Yes Advance Directives on File: No Recently lost weight without trying: No Eating poorly because of decreased appetite: No Nutrition Risks: No Nutritional Risk Poor oral hygiene: No (full upper & lower denture) Meds Allergies Allergy/AdvReac Type Severity Reaction Status Date / Time No Known Allergies Allergy Verified 03/15/23 07:04 Home Medications Medication Instructions Recorded Confirmed Last Taken Type albuterol sulfate 2.5 mg/3 mL 2.5 mg inhalation Q6H PRN 06/03/22 03/09/23 Unknown History (0.083 %) solution for nebulization Shortness Of Breath Or Wheezing alendronate 70 mg tablet 70 mg PO QWEEK 06/03/22 03/09/23 Unknown History celecoxib 200 mg capsule 200 mg PO DAILY 06/03/22 03/09/23 Unknown History etanercept 50 mg/mL (1 mL) 50 mg subcut QWEEK 06/03/22 03/09/23 Unknown History subcutaneous pen injector (Enbrel SureClick) fluticasone propionate 115 2 puff inhalation BID 06/03/22 03/09/23 Unknown History mcg-salmeterol 21 mcg/actuation HFA inhaler (Advair HFA) folic acid 1 mg tablet 1 mg PO DAILY 06/03/22 03/09/23 Unknown History insulin detemir U-100 100 unit/mL 40 unit subcut .DAILY@NOON 06/03/22 03/09/23 Unknown History (3 mL) subcutaneous pen (Levemir FlexTouch U-100 Insulin) metformin 500 mg tablet 1,000 mg PO DAILY@0706/03/22 03/09/23 Unknown History methotrexate sodium 2.5 mg tablet 12.5 mg PO QWEEK 06/03/22 03/09/23 Unknown History metoprolol succinate 50 mg 50 mg PO DAILY 06/03/22 03/09/23 Unknown History tablet,extended release 24 hr rosuvastatin 40 mg tablet 40 mg PO DAILY 06/03/22 03/09/23 Unknown History valsartan 80 1 tab PO DAILY 06/03/22 03/09/23 Unknown History mg-hydrochlorothiazide 12.5 mg tablet aspirin 81 mg tablet,delayed 81 mg PO DAILY 12/31/22 03/09/23 Unknown History release metformin 500 mg tablet 500 mg PO BEDTIME 12/31/22 03/09/23 Unknown History Exam Exam Date and Time: March 12, 2023 0929 Height,Weight and Vital Signs: Height 5 ft 2 in Weight 99.337 kg Assessment and Plan Assessment Anesthesia Assessment: Chart Reviewed Final Anesthetic Review Family History of Problems with Anesthesia: No History of Problems with Anesthesia: No Documented by User: Georgie Braun MD 03/15/23 09:12 [facility] Past Medical History Medical History Asthma CAD (coronary artery disease) Cataract Diabetes HTN (hypertension) Rheumatoid arthritis Wears dentures Surgical History Surgical History Hx of cholecystectomy Hx of colonoscopy Hx of hysterectomy Hx of right cataract extraction Stented coronary artery Social History Social History Are you a primary manager wound care to a significant other at home: No Do you presently have visiting nurse or other home services: No Alcohol intake: never Patient Tobacco Use Status: Never used Tobacco Use of substances other than those prescribed or required for medical reasons: No Have you been hit, kicked, punched, or otherwise hurt by someone within the past year? If so, by whom?: No Are you DNR?: No Advance Directives: No Advance Directives Information Provided: Yes Advance Directives on File: No Recently lost weight without trying: No Eating poorly because of decreased appetite: No Nutrition Risks: No Nutritional Risk Poor oral hygiene: No (full upper & lower denture) Meds Allergies Allergy/AdvReac Type Severity Reaction Status Date / Time No Known Allergies Allergy Verified 03/15/23 07:04 Home Medications Medication Instructions Recorded Confirmed Last Taken Type albuterol sulfate 2.5 mg/3 mL 2.5 mg inhalation Q6H PRN 06/03/22 03/09/23 Unknown History (0.083 %) solution for nebulization Shortness Of Breath Or Wheezing alendronate 70 mg tablet 70 mg PO QWEEK 06/03/22 03/09/23 Unknown History celecoxib 200 mg capsule 200 mg PO DAILY 06/03/22 03/09/23 Unknown History etanercept 50 mg/mL (1 mL) 50 mg subcut QWEEK 06/03/22 03/09/23 Unknown History subcutaneous pen injector (Enbrel SureClick) fluticasone propionate 115 2 puff inhalation BID 06/03/22 03/09/23 Unknown History mcg-salmeterol 21 mcg/actuation HFA inhaler (Advair HFA) folic acid 1 mg tablet 1 mg PO DAILY 06/03/22 03/09/23 Unknown History insulin detemir U-100 100 unit/mL 40 unit subcut .DAILY@NOON 06/03/22 03/09/23 Unknown History (3 mL) subcutaneous pen (Levemir FlexTouch U-100 Insulin) metformin 500 mg tablet 1,000 mg PO DAILY@0730 06/03/22 03/09/23 Unknown History methotrexate sodium 2.5 mg tablet 12.5 mg PO QWEEK 06/03/22 03/09/23 Unknown History metoprolol succinate 50 mg 50 mg PO DAILY 06/03/22 03/09/23 Unknown History tablet,extended release 24 hr rosuvastatin 40 mg tablet 40 mg PO DAILY 06/03/22 03/09/23 Unknown History valsartan 80 1 tab PO DAILY 06/03/22 03/09/23 Unknown History mg-hydrochlorothiazide 12.5 mg tablet aspirin 81 mg tablet,delayed 81 mg PO DAILY 12/31/22 03/09/23 Unknown History release metformin 500 mg tablet 500 mg PO BEDTIME 12/31/22 03/09/23 Unknown History Exam Airway Mallampati Class: II (edentulous, wearing dentures) TM Dist: >3cm Neck ROM: Full Loose/Missing/Broken Teeth: Yes, Upper and Lower Heart: RRR Lungs: CTA Assessment and Plan Assessment Anesthesia Assessment: Anesthesia Plan Discussed Final Anesthetic Review NPO: Yes ASA Class: III Final Preanesthetic Review: Meds/Allgs Chart Reviewed, Consent Obtained/Reviewed and Anes Risks/Benef Reviewed Patient Risk: Intermediate Procedure Risk: Low Anesthetic Plan Anesthetic Plan: MAC: Disposition: Standard PACU
[2023-03-15] MEDS: Lactated Ringers 500 ML 50 ML IV (08:07)
[2023-03-15 08:09] LABS: Glucose, Whole Blood 128 mg/dL (60-115)
[2023-03-15] MEDS: Tetracaine HCl/PF 0.5% Oph Sol 4 ML DROPS 1 DROP EYE-LEFT (08:14)
[2023-03-15] MEDS: Phenylephrine HCL 2.5% Oph SoL 2 ML BOTTLE 1 DROP EYE-LEFT ×3 (08:14→08:22)
[2023-03-15] MEDS: Cyclopentolate 1 % Ophth Sol 2 ML DRPBTL 1 DROP EYE-LEFT ×3 (08:14→08:22)
[2023-03-15] MEDS: Tropicamide 1 % Ophth Sol 3 ML BTL 1 DROP EYE-LEFT ×3 (08:14→08:22)
[2023-03-15] MEDS: Ketorolac Tromethamine 0.5% Op 5 ML DROPS 1 DROP EYE-LEFT ×3 (08:15→08:22)
[2023-03-15 08:20] VITALS: BP 151/66; PULSE 75; RESP 18; TEMP 36.4; O2SAT 95
--- NOTE | 2023-03-15 10:23 | HO.PNOPHT ---
Ophthalmology Procedure Procedure Date of Service: 03/15/23 Ophthalmology Viscoelastic: Healkirill Duet Dual Pack Pro Ophthalmology Lenses: TECIOANA [id number] (17) Procedure Notes: PREOPERATIVE DIAGNOSIS: Decreased visual acuity left eye secondary to cataract POSTOPERATIVE DIAGNOSIS: Same PROCEDURE: Left cataract extraction with intraocular lens insertion SURGEON: Gavin Farley M.D. ANESTHESIA: Topical/MAC ESTIMATED BLOOD LOSS: None COMPLICATIONS: None After obtaining informed consent, the patient was brought to the operation room suite and placed in the supine position. After adequate sedation per anesthesia, topical drops of Tetracaine were given to the left eye. The eye was then prepped and draped in the usual sterile fashion. The operating room microscope was then positioned over the operative eye and a lid speculum placed. A paracentesis was created. Viscoelastic was then instilled into the anterior chamber. A three plane incision was then created temporally, utilizing a 2.85 mm keratome. Capsulotomy forceps were then utilized to create a circular tear capsulotomy. Hydrodissection and hydrodelineation were carried out until adequate mobilization of the nucleus occurred. Phacoemulsification was then utilized to remove the dense central nucleus followed by removal of the cortical material utilizing the automated aspiration irrigation unit. Viscoat elastic was instilled into the posterior capsular bag followed by placement of a posterior chamber intraocular lens without difficulty. The residual Viscoat elastic was then removed utilizing the automated IA machine. The wound was check and found to be watertight. The patient tolerated the procedure well and the lid speculum was removed. Intracameral injection of Vigamox 0.1 mL followed by a subtenon injection of Kenalog-40 0.2 mL were administered. The patient will be seen in the a.m.
[2023-03-15 10:43] VITALS: BP 140/57; PULSE 87; RESP 20; TEMP 36.4; O2SAT 98
== END 2023-03-15 10:49 | disposition home or self-care (01) ==
LOC: HO.SSS 06:49
PROVIDERS: PCP Internal Medicine; Visit Provider Ophthalmology
PROC: (CPT 66985; principal; 2023-03-15 10:20)
DX: H25.12 Age-related nuclear cataract, left eye (principal); H52.4 Presbyopia; H18.413 Arcus senilis, bilateral; H04.123 Dry eye syndrome of bilateral lacrimal glands; I10 Essential (primary) hypertension; E78.00 Pure hypercholesterolemia, unspecified; M06.9 Rheumatoid arthritis, unspecified; J45.909 Unspecified asthma, uncomplicated; E11.9 Type 2 diabetes mellitus without complications; Z79.84 Long term (current) use of oral hypoglycemic drugs; Z79.51 Long term (current) use of inhaled steroids; Z79.899 Other long term (current) drug therapy; Z79.1 Long term (current) use of non-steroidal anti-inflammatories (NSAID); Z88.8 Allergy status to other drugs, medicaments and biological substances
CPT/HCPCS: 66984; 82947; J2250; J3010; J3301; V2632

== ENCOUNTER 2023-06-24 15:38 | Outpatient (REF) | payer MEDICARE, OTHER, SELFPAY ==
[2023-06-24 15:41] LABS: MANUAL DIFF FLAG NO
[2023-06-24 15:44] LABS: Basophils Absolute Auto 0.1 X10*3/uL (0.0-0.2); Basophils Percent Auto 0.7 % (0-2); Eosinophils Absolute Auto 0.2 X10*3/uL (0.0-0.4); Eosinophils Percent Auto 2.1 % (0-4); Hematocrit 38.1 % (37.0-47.0); Hemoglobin 12.7 g/dl (12.0-16.0); Imm Gran Abs Auto 0.02 X10*3/uL (0.00-0.03); Imm Gran Pct Auto 0.2 % (0.0-0.4); Lymphocytes Absolute Auto 2.7 X10*3/uL (1.2-4.9); Lymphocytes Percent Auto 32.2 % (20-40); Mean Corpuscular HGB Conc 33.3 g/dl (31.0-35.0); Mean Corpuscular Hemoglobin 31.1 pg (27.0-33.0); Mean Corpuscular Volume 93.2 fL (80.0-98.0); Mean Platelet Volume 10.7 fL (9.4-12.3); Monocytes Absolute Auto 0.7 X10*3/uL (0.1-1.2); Monocytes Percent Auto 8.1 % (2-11); Neutrophils Absolute Auto 4.8 x10*3/uL (2.0-8.3); Neutrophils Percent Auto 56.7 % (45-73); Platelet Count 342 X10*3/uL (160-400); Red Blood Count 4.09 X10*6/uL (4.20-5.50); Red Cell Distribution Width 15.4 % (11.0-16.0); White Blood Count 8.4 X10*3/uL (4.8-10.8)
[2023-06-24 15:55] LABS: Estimated Average Glucose 171 mg/dL; Hemoglobin A1c % 7.6 % (<6.0)
== END 2023-06-24 15:39 | disposition home or self-care (01) ==
LOC: HO.LNP 15:38
PROVIDERS: Visit Provider Internal Medicine
DX: D64.9 Anemia, unspecified (principal); E11.9 Type 2 diabetes mellitus without complications
CPT/HCPCS: 83036; 85025

== ENCOUNTER 2023-09-24 10:45 | Outpatient (REF) | payer MEDICARE, OTHER, SELFPAY ==
[2023-09-24 11:19] LABS: Alanine Aminotransferase 34 U/L (0-31); Albumin Level 4.1 g/dL (3.5-5.0); Alkaline Phosphatase 69 U/L (39-117); Aspartate Amino Transferase 28 U/L (5-31); Bilirubin Direct 0.3 mg/dL (0.0-0.5); Bilirubin Total 0.7 mg/dL (0.0-1.0); Glucose Fasting 143 mg/dL (60-99); Total Protein 7.1 g/dL (6.5-8.0)
[2023-09-24 11:21] LABS: Cholesterol 113 mg/dL (<200); HDL Cholesterol 57 mg/dL (>40); LDL Cholesterol Calculated 28 mg/dL (<100); Triglycerides 143 mg/dL (<150)
[2023-09-24 11:29] LABS: Estimated Average Glucose 177 mg/dL; Hemoglobin A1c % 7.8 % (<6.0)
[2023-09-24 12:25] LABS: Reflex LDLD? No
== END 2023-09-24 10:46 | disposition home or self-care (01) ==
LOC: HO.LNP 10:45
PROVIDERS: Visit Provider Internal Medicine
DX: E11.9 Type 2 diabetes mellitus without complications (principal); E78.00 Pure hypercholesterolemia, unspecified
CPT/HCPCS: 80061; 80076; 82947; 83036

== ENCOUNTER 2024-03-20 12:00 | Outpatient (REF) | payer MEDICARE, OTHER, SELFPAY ==
[2024-03-20 12:05] LABS: MANUAL DIFF FLAG NO
[2024-03-20 12:12] LABS: Appearance Urine Clear; Color Urine Yellow; Glucose Urine UA Negative (Negative); Leukocyte Esterase Urine Negative (Negative); Nitrite Urine Negative (Negative); PH 5.5 (5.0-9.0); Specific Gravity - Urine 1.015 (1.005-1.025); Urine Blood Negative (Negative); Urine Ketones Negative (Negative); Urine Protein Trace mg/dL (Neg-Trace)
[2024-03-20 12:14] LABS: Basophils Absolute Auto 0.1 X10*3/uL (0.0-0.2); Basophils Percent Auto 0.6 % (0-2); Eosinophils Absolute Auto 0.2 X10*3/uL (0.0-0.4); Eosinophils Percent Auto 2.7 % (0-4); Hemoglobin 12.7 g/dl (12.0-16.0); Imm Gran Abs Auto 0.03 X10*3/uL (0.00-0.03); Imm Gran Pct Auto 0.4 % (0.0-0.4); Lymphocytes Absolute Auto 2.3 X10*3/uL (1.2-4.9); Lymphocytes Percent Auto 28.4 % (20-40); Mean Corpuscular HGB Conc 33.4 g/dl (31.0-35.0); Mean Corpuscular Hemoglobin 31.1 pg (27.0-33.0); Mean Corpuscular Volume 93.1 fL (80.0-98.0); Mean Platelet Volume 10.3 fL (9.4-12.3); Monocytes Absolute Auto 0.6 X10*3/uL (0.1-1.2); Monocytes Percent Auto 7.3 % (2-11); Neutrophils Absolute Auto 4.9 x10*3/uL (2.0-8.3); Neutrophils Percent Auto 60.6 % (45-73); Platelet Count 306 X10*3/uL (160-400); Red Blood Count 4.08 X10*6/uL (4.20-5.50); Red Cell Distribution Width 15.2 % (11.0-16.0)
[2024-03-20 12:20] LABS: Bacteria Urine None Seen (None Seen); Hyaline Casts Urine 0-2 /LPF (0-2); RBC Urine 0-2 /HPF (0-2); WBC Urine 0-5 /HPF (0-5)
[2024-03-20 12:25] LABS: Estimated Average Glucose 157 mg/dL; Hemoglobin A1c % 7.1 % (<6.0)
[2024-03-20 12:42] LABS: Alanine Aminotransferase 35 U/L (0-31); Alkaline Phosphatase 60 U/L (39-117); Anion Gap 17 (12-20); Aspartate Amino Transferase 47 U/L (5-31); Bilirubin Total 0.6 mg/dL (0.0-1.0); Blood Urea Nitrogen 12 mg/dL (9-16); Calcium 9.5 mg/dL (8.4-10.2); Carbon Dioxide 27 mmol/L (22-29); Chloride 105 mmol/L (96-108); Cholesterol 97 mg/dL (<200); Estimated Glomerular Filt Rate > 60; Glucose Fasting 94 mg/dL (60-99); HDL Cholesterol 51 mg/dL (>40); LDL Cholesterol Calculated 24 mg/dL (<100); Potassium 3.7 mmol/L (3.3-5.1); Sodium 145 mmol/L (135-145); Total Protein 7.1 g/dL (6.5-8.0); Triglycerides 111 mg/dL (<150)
[2024-03-20 12:50] LABS: Creatinine Urine 119.15 mg/dL; Microalbum/Creatinine Ratio Ur 39.4 ug/mg cr (<30)
== END 2024-03-20 12:01 | disposition home or self-care (01) ==
LOC: HO.LNP 12:00
PROVIDERS: Visit Provider Internal Medicine
DX: E78.00 Pure hypercholesterolemia, unspecified (principal); I10 Essential (primary) hypertension; E11.9 Type 2 diabetes mellitus without complications
CPT/HCPCS: 80053; 80061; 81001; 82043; 82570; 83036; 85025

== ENCOUNTER 2024-06-29 07:57 | Outpatient (AMB) | payer MEDICARE, OTHER, SELFPAY ==
--- NOTE | 2024-06-29 08:00 | A.OFFVIS_ITS ---
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 [facility] Medical History Wears dentures Cataract Diabetes HTN (hypertension) CAD (coronary artery disease) Rheumatoid arthritis Asthma Surgical History Hx of right cataract extraction Hx of hysterectomy Hx of colonoscopy Hx of cholecystectomy Stented coronary artery Family History Father HTN (hypertension) Heart attack Stomach cancer Mother HTN (hypertension) Brother Heart disease Sister Heart disease Social History Household Members: Spouse Housing: House Are you a primary daycare provider to a significant other at home: No Do you presently have visiting nurse or other home services: No Alcohol intake: never Comment: aware of trip hazard Patient Tobacco Use Status: Never used Tobacco Current occupational status: retired Sexual orientation: Straight/Heterosexual Gender identity: Female Review of Systems Const All systems reviewed & are unremarkable except as noted in HPI and below Card Reports as per HPI and Reports no additional complaints Resp Reports as per HPI and Reports no additional complaints GI Reports as per HPI and Reports no additional complaints Reports as per HPI Physical Exam Const General: cooperative, healthy appearing and comfortable General: Yes bladder normal to palpation External Female Exam: lesion (Bilateral vulvar multiple sebaceous cysts) Speculum Exam - Vagina: normal appearance of the vagina, normal vaginal discharge and not erythematous Speculum Exam - Cervix: Cervix absent Bimanual exam- vagina & uterus: bladder normal to palpation and uterus absent Bimanual Exam- Adnexa, other: Other (No masses detected) Assessment & Plan Assessment & Plan (1) Sebaceous cyst of labia: Comment: Bilateral Code(s): N90.7 - Vulvar cyst Category: Medical Plan: Discussed with the patient the finding on pelvic exam showing bilateral vulvar multiple sebaceous cyst. Instructions given the patient to call in case of drainage, pain irritation other concerns. All questions answered, the patient verbalized understanding Coding Level of Care Code New Pt Level 3 (74626) Diagnoses Sebaceous cyst of labia N90.7
[2024-06-29 08:05] VITALS: BP 120/70; BMI 42.3
== END 2024-06-29 08:53 | disposition home or self-care (01) ==
LOC: HO.HWS 07:57
PROVIDERS: PCP Internal Medicine; Visit Provider Obstetrics & Gynecology
DX: N90.7 Vulvar cyst (principal)
CPT/HCPCS: 99203

== ENCOUNTER → 2024-06-29 07:57 | Outpatient (BNVA) | payer MEDICARE, OTHER, SELFPAY | PROVIDERS: PCP Internal Medicine; Visit Provider Obstetrics & Gynecology | DX: N90.7 Vulvar cyst (principal) | CPT/HCPCS: 99202 ==

== ENCOUNTER 2024-10-02 10:36 | Outpatient (REF) | payer MEDICARE, OTHER, SELFPAY ==
[2024-10-02 12:30] LABS: Estimated Average Glucose 146 mg/dL; Hemoglobin A1c % 6.7 % (<6.0); Total Hemoglobin (HGBA1C) 3315.9296 umol/L
[2024-10-02 12:55] LABS: Alanine Aminotransferase 37 U/L (0-31); Albumin Level 4.1 g/dL (3.5-5.0); Alkaline Phosphatase 66 U/L (39-117); Aspartate Amino Transferase 46 U/L (5-31); Bilirubin Direct 0.3 mg/dL (0.0-0.5); Bilirubin Total 0.5 mg/dL (0.0-1.0); Cholesterol 99 mg/dL (<200); Glucose Fasting 70 mg/dL (60-99); HDL Cholesterol 58 mg/dL (>40); LDL Cholesterol Calculated 25 mg/dL (<100); Total Protein 7.4 g/dL (6.5-8.0); Triglycerides 81 mg/dL (<150)
[2024-10-02 13:38] LABS: Reflex LDLD? No
== END 2024-10-02 10:37 | disposition home or self-care (01) ==
LOC: HO.LNP 10:36
PROVIDERS: Visit Provider Internal Medicine
DX: E11.9 Type 2 diabetes mellitus without complications (principal); E78.00 Pure hypercholesterolemia, unspecified
CPT/HCPCS: 80061; 80076; 82947; 83036

== ENCOUNTER 2025-01-30 09:20 | Outpatient (AMB) | payer MEDICARE, OTHER, SELFPAY ==
--- NOTE | 2025-01-30 09:24 | A.OFFVIS_ITS ---
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 No complaints. Last Pap/HPV was many years ago, no history of abnormal Pap smear, the patient is status post hysterectomy for benign disease Last Mammogram was in 07/20 at [facility] according to the patient was negative, no records available Next screening Colonoscopy is in a year according to the patient Last DEXA scan was in 2019 showed osteoporosis, the patient is alendronate 70 mg p.o. q.week PFSH Medical History Wears dentures Cataract Diabetes HTN (hypertension) CAD (coronary artery disease) Rheumatoid arthritis Asthma Surgical History Hx of right cataract extraction Hx of hysterectomy Hx of colonoscopy Hx of cholecystectomy Stented coronary artery Family History Father HTN (hypertension) Heart attack Stomach cancer Mother HTN (hypertension) Brother Heart disease Sister Heart disease Social History Household Members: Spouse Housing: House Are you a primary career center director to a significant other at home: No Do you presently have visiting nurse or other home services: No Alcohol intake: never Comment: aware of trip hazard Patient Tobacco Use Status: Never used Tobacco Current occupational status: retired Sexual orientation: Straight/Heterosexual Gender identity: Female Female Reproductive History Menstrual Menopause type: surgical Review of Systems Const All systems reviewed & are unremarkable except as noted in HPI and below Card Reports as per HPI and Reports no additional complaints Resp Reports as per HPI and Reports no additional complaints GI Reports as per HPI and Reports no additional complaints Reports as per HPI Physical Exam Const General: cooperative, healthy appearing and comfortable General: Yes bladder normal to palpation External Female Exam: No lesion Speculum Exam - Vagina: normal appearance of the vagina, normal vaginal discharge and not erythematous Speculum Exam - Cervix: Cervix absent Bimanual exam- vagina & uterus: bladder normal to palpation and uterus absent Bimanual Exam- Adnexa, other: Other (No masses detected) Assessment & Plan Assessment & Plan (1) Well woman exam: Code(s): Z01.419 - Encounter for gynecological examination (general) (routine) without abnormal findings Category: Medical Plan: Co testing not indicated since the patient 's age is above 65 with no history of abnormal Pap smears last 25 years, status post hysterectomy for benign disease Counseled the patient about the recommended dietary allowance of 1200 mg of Calcium & 800 IU of vitamin D. Instructions given the patient to schedule next screening Mammogram in 07/21. Will order DEXA scan . The patient was instructed to perform monthly self-breast exams and to schedule a 2 week DEXA scan follow-up appointment and an annual exam in a year; All questions answered and the patient verbalized understanding. Orders: Orders XR DEXA axial skeleton Today Z78.0 - Asymptomatic menopausal state Coding Level of Care Code Est Pt Prev Care >65y(24186) Diagnoses Well woman exam Z01.419
[2025-01-30 09:25] VITALS: BP 140/70; BMI 43.3
--- OUTSIDE RECORDS SUMMARY | 2025-01-30 10:10 | XMS_ITS | Patient Health Record ---
Author Organization Miguel Guzman MD Address [address] [place] [phone] Care Team Providers Care Manager Custom Name Role Phone Miguel Guzman Primary Care Provider Allergies Allergen (clinical drug ingredient) Drug/Non Drug Allergy documented on EMR Reaction Allergy Type Onset Date Status trajenta (uncoded) chest pain/fe els poorly Allergy Active Results Component Value Reference Range Notes Hemoglobin A1c Reviewed date:06/30/2024 10:04:08 AM Interpretation: Performing Lab: Notes/Report: Hemoglobin A1c 7.1 Complete Blood Count Auto Di ff Reviewed date:03/20/2024 05:28:14 PM Interpretation: Performing Lab:[facility], [address] [place] [phone] Notes/Report: White Blood Count 8.0 4.8-10.8 X10*3/uL Red Blood Count 4.08 4.20-5.50 X10*6/uL Hemoglobin 12.7 12.0-16.0 g/dl Hematocrit 38.0 37.0-47.0 % Mean Corpuscular Volume 93.1 80.0-98.0 fL Mean Corpuscular Hemoglobin 31.1 27.0-33.0 pg Mean Corpuscular HGB Conc 33.4 31.0-35.0 g/dl Red Cell Distribution Width 15.2 11.0-16.0 % Platelet Count 306 160-400 X10*3/uL Mean Platelet Volume 10.3 9.4-12.3 fL Neutrophils Percent Auto 60.6 45-73 % Imm Gran Pct Auto 0.4 0.0-0.4 % Lymphocytes Percent Auto 28.4 20-40 % Monocytes Percent Auto 7.3 2-11 % Eosinophils Percent Auto 2.7 0-4 % Basophils Percent Auto 0.6 0-2 % NRBC Pct Auto 0.0 0.0-0.2 /100WBC Neutrophils Absolute Auto 4.9 2.0-8.3 x10*3/u L Imm Gran Abs Auto 0.03 0.00-0.03 X10*3/uL Lymphocytes Absolute Auto 2.3 1.2-4.9 X10*3/u L Monocytes Absolute Auto 0.6 0.1-1.2 X10*3/uL Eosinophils Absolute Auto 0.2 0.0-0.4 X10*3/u L Basophils Absolute Auto 0.1 0.0-0.2 X10*3/uL NRBC Abs Auto 0.000 0.0-0.012 X10*3/uL Comprehensive [place]. Panel Fa st Reviewed date:03/20/2024 05:18:43 PM Interpretation: Performing Lab:[facility], [address] [place] [phone] Notes/Report: Sodium 145 135-145 mmol/L Potassium 3.7 3.3-5.1 mmol/L Chloride 105 96-108 mmol/L Carbon Dioxide 27 22-29 mmol/L Anion Gap 17 12-20 Blood Urea Nitrogen 12 9-16 mg/dL Creatinine 0.76 0.5-1.4 mg/dL Estimated Glomerular Filt Rate > 60 NOTE: For -[place] individuals, multiply the result by 1.210. Chronic Kidney Disease: Estimated GFR < 60 mL/min/1.73m2 Severe Kidney Disease: Estimated GFR < 15 mL/min/1.73m2 Glucose Fasting 94 60-99 mg/dL Calcium 9.5 8.4-10.2 mg/dL Bilirubin Total 0.6 0.0-1.0 mg/dL Aspartate Amino Transferase 47 5-31 U/L Alanine Aminotransferase 35 0-31 U/L Total Protein 7.1 6.5-8.0 g/dL Albumin Level 4.0 3.5-5.0 g/dL Alkaline Phosphatase 60 39-117 U/L Lipid Panel Reviewed date:03/20/2024 05:07:44 PM Interpretation: Performing Lab:[facility], [address] [place] [phone] Notes/Report: Triglycerides 111 <150 mg/dL Desirable Triglyceride: less than 150 mg/dL Borderline High Triglyceride 150-199 mg/dL High Triglyceride: 200-499 mg/dL Very High Triglyceride: greater than or equal to 5OO mg/dL Cholesterol 97 <200 mg/dL Desirable Cholesterol: less than 200 mg/dL Borderline High Cholesterol: 200-239 mg/dL High Cholesterol: greater than 239 mg/dL LDL Cholesterol Calculated 24 <100 mg/dL Desirable LDL: less than 100 mg/dL Near Optimal/Above Optimal LDL: 110-129 mg/dL Borderline High LDL: 130-159 mg/dL High LDL: 160-189 mg/dL Very High LDL: greater than or equal to 190 mg/dL HDL Cholesterol 51 >40 mg/dL Desirable HDL: greater than 40 mg/dL Note: This HDL assay may give artificially low results in patients with liver disease. Microalbumin, Random Reviewed date:03/20/2024 05:13:01 PM Interpretation: Performing Lab:[address] [phone] Notes/Report: Creatinine Urine 119.15 Microalbumin Urine 47.0 Microalbum/Creatinine Ratio Ur 39.4 <30 ug/mg cr Albumin/Creatinine Ratio Reference Ranges: Normal: < 30 ug/mg creatinine Microalbuminuria: 30 - 300 ug/mg creatinine Clinical Albuminuria: > 300 ug/mg creatinine Hemoglobin A1c Reviewed date:03/20/2024 05:12:05 PM Interpretation: Performing Lab:[facility], [address] [place] [phone] Notes/Report: Hemoglobin A1c % 7.1 <6.0 % Hemoglobin A1C Reference Range Adults: 4.8 - 6.0 % Non diabetic: < 6.0 % Goal: < 7.0 % Additional Action Suggested: > 8.0 % Note: Hemoglobin A1c results are invalid for patients with abnormal amounts of HbF. Blood transfusions may impact the HbA1c concentration in the patient sample. Estimated Average Glucose 157 eAG = Estimated average glucose which is %A1C expressed as average glucose, using the formula of the V0W-Pjhlgxb Average Glucose study (ADAG), Diabetes Care, Vol.31,#8, Apr. 2007 UA ClnCatch+Micro w/rflx Cul t Reviewed date:03/20/2024 05:30:20 PM Interpretation: Performing Lab:[address] [phone] Notes/Report: Urine, Clean Catch Color Urine Yellow Appearance Urine Clear PH 5.5 5.0-9.0 Glucose Urine UA Negative Negative mg/dL Urine Blood Negative Negative Specific [place] - Urine 1.015 1.005-1.025 Urine Protein Trace Neg-Trace mg/dL Urine Ketones Negative Negative mg/dL Nitrite Urine Negative Negative Leukocyte Esterase Urine Negative Negative RBC Urine 0-2 0-2 /HPF WBC Urine 0-5 0-5 /HPF Squamous Epithelial Cell Urine 3-5 0-2 /HPF Bacteria Urine None Seen None Seen Hyaline Casts Urine 0-2 0-2 /LPF Liver Panel Reviewed date:10/02/2024 05:50:28 PM Interpretation: Performing Lab:[facility], [address] [place] [phone] Notes/Report: Bilirubin Total 0.5 0.0-1.0 mg/dL Bilirubin Direct 0.3 0.0-0.5 mg/dL Aspartate Amino Transferase 46 5-31 U/L Alanine Aminotransferase 37 0-31 U/L Total Protein 7.4 6.5-8.0 g/dL Albumin Level 4.1 3.5-5.0 g/dL Alkaline Phosphatase 66 39-117 U/L Glucose Fasting Reviewed date:10/02/2024 02:18:34 PM Interpretation: Performing Lab:[facility], [address] [place] [phone] Notes/Report: Glucose Fasting 70 60-99 mg/dL Lipid Panel with Reflex Reviewed date:10/02/2024 05:51:03 PM Interpretation: Performing Lab:[facility], [address] [place] [phone] Notes/Report: Triglycerides 81 <150 mg/dL Desirable Triglyceride: less than 150 mg/dL Borderline High Triglyceride 150-199 mg/dL High Triglyceride: 200-499 mg/dL Very High Triglyceride: greater than or equal to 5OO mg/dL Cholesterol 99 <200 mg/dL Desirable Cholesterol: less than 200 mg/dL Borderline High Cholesterol: 200-239 mg/dL High Cholesterol: greater than 239 mg/dL LDL Cholesterol Calculated 25 <100 mg/dL Desirable LDL: less than 100 mg/dL Near Optimal/Above Optimal LDL: 110-129 mg/dL Borderline High LDL: 130-159 mg/dL High LDL: 160-189 mg/dL Very High LDL: greater than or equal to 190 mg/dL HDL Cholesterol 58 >40 mg/dL Desirable HDL: greater than 40 mg/dL Note: This HDL assay may give artificially low results in patients with liver disease. Hemoglobin A1c Reviewed date:10/02/2024 05:45:48 PM Interpretation: Performing Lab:[facility], [address] [place] [phone] Notes/Report: Hemoglobin A1c % 6.7 <6.0 % Hemoglobin A1C Reference Range Adults: 4.8 - 6.0 % Non diabetic: < 6.0 % Goal: < 7.0 % Additional Action Suggested: > 8.0 % Note: Hemoglobin A1c results are invalid for patients with abnormal amounts of HbF. Blood transfusions may impact the HbA1c concentration in the patient sample. Estimated Average Glucose 146 eAG = Estimated average glucose which is %A1C expressed as average glucose, using the formula of the K5C-Jqohfxr Average Glucose study (ADAG), Diabetes Care, Vol.31,#8, Apr. 2007 Glucose, finger stick Reviewed date:06/30/2024 09:56:59 AM Interpretation: Performing Lab: Notes/Report: Value 99 Hold Gold Reviewed date:03/20/2024 05:09:13 PM Interpretation: Performing Lab:[facility], [address] [place] [phone] Notes/Report: Leilani Lauren See Note Specimen held untested for 24 hours; Call to request Chemistry testing. Leilani Leonidas Reviewed date:10/02/2024 12:50:45 PM Interpretation: Performing Lab:[facility], [address] [place] [phone] Notes/Report: Leilani Lauren See Note Specimen held untested for 24 hours; Call to request Chemistry testing. Reason For Referral Reason VAGINAL IRRITATION Diagnosis 1 Vaginal irritation ( N89.8) Referral Organization Miguel Guzman MD Referring Provider First Name Miguel Referring Provider Last Name Megan Referring Provider Speciality Internal M edicine Referred Provider KIARA BRADY Referred Provider Specialty OB - Gynecol ogy General Notes Beth Paige 05/01/2024 08:43:57 AM EDT > PHONE CALL INDICAES NO APPT YET , OFFICE SHORT STAFFED. REF WAS FAXED 04/24, Beth Paige 05/05/2024 11:47:07 AM EDT >[facility] CALLED TO VERIFY APPT 06/29/24 AT 8AM , Beth Paige 06/29/2024 03:00:20 PM EDT > OFFICE NOTE HAS BEEN RECEIVED Referral Priority Routine Referral Appointment Date 06/29/2024 Medications Medication SIG (Take, Route, Frequency, Duration) Notes Start Date End Date Status Enbrel 25 MG/0.5ML 0.5 ml Subcutaneous once a week Active Valsartan-hydroCHLOROthiaz nima 80-12.5 MG TAKE 1 TABLET BY MOUTH EVERY DAY FOR 90 DAYS Active Methotrexate 1 tab Oral Active Metoprolol Succinate ER 50 MG TAKE 1 TABLET BY MOUTH EVERY DAY Orally Once a day Active Tylenol Extra Strength 500 MG 2 tablets as needed Orally every 6 hrs Active metFORMIN HCl 500 MG TAKE 2 TABLET BY MO UTH IN THE MORNING AND 1 TABLET IN THE AFTERNOON Orally Once a day Active Tylenol PM Extra Strength 500-25 MG 2 tablets at bedtime as needed Orally Once a day Active Rosuvastatin Calcium 40 MG TAKE 1 TABLET BY MOUTH EVERY DAY Active BD Pen Needle Mini U/F 31G X 5 MM USE DIRECTED DAILY for 90 Active Celecoxib 200 MG 1 capsule with food Orally Twice a day Active Albuterol Sulfate (2.5 MG/3ML) 0.083% INHALE 1 VIAL VIA NEBULIZER EVERY 6 HOURS EVERY 4 HRS INHALATION 10 DAYS INHALATION EVERY 6 HRS 90 DAYS for 20 Active Lantus SoloStar 100 UNIT/ML 60 units Subcutaneous daily 12/30/2023 Active Alendronate Sodium 70 MG 1 tablet 30 min utes before the first food, beverage or medicine of the day with plain water Orally weekly Active OneTouch Ultra - TEST BLOOD SUGAR TWI CE A DAY for 90 Active FreeStyle Lite Test n/a test blood sugar once a day n/a once/day for 90 days Active Basaglar KwikPen 100 UNIT/ML 60 units Subcutaneous daily for 90 days 12/14/2024 Active FreeStyle Lite Test TEST BLOOD SUGAR ONC E A DAY for 90 days Active Advair HFA 115-21 MCG/ACT INHALE 2 PUFFS BY MOUTH TWICE DAILY for 90 Active Immunizations Vaccine Route Administration Date Status Comme nts Flu Vaccine IM Intramuscular 07/27/2013 Administered Flu Vaccine IM Intramuscular 07/11/2014 Administered [facility] P harmacy PPSV23 (Pnemovax) IM Intramuscular 07/18/2015 Administered Flu Vaccine IM Intramuscular 07/04/2015 Administered given at work Flu Vaccine Unknown 07/09/2016 Administered at work TDaP IM Intramuscular 05/13/2018 Administered pt was given the vaccine at [facility] on ishBowl Stephen, [place] Fluarix Quadrivalent IM Intramuscular 07/01/2018 Administe red Fluarix Quadrivalent IM Intramuscular 06/23/2019 Administe red Tetanus Unknown 05/13/2018 Administered Fluarix Quadrivalent IM Intramuscular 07/15/2020 Administe red Covid Vaccine Unknown 12/06/2020 Administered Pfizer Covid Vaccine Unknown 12/27/2020 Administered Pfizer Fluarix Quadrivalent IM Intramuscular 07/17/2021 Administe red SARS-COV-2 Moderna Unknown 01/08/2022 Administered Influenza High Dose IM Intramuscular 06/25/2022 Administer ed Influenza High Dose IM Intramuscular 06/04/2023 Administer ed Fluarix Quadrivalent - 150 IM Intramuscular 06/15/2024 Administered TDaP Unknown 12/13/2017 Refused Prevnar 13 Unknown 12/27/2017 Refused Shingrix Unknown 11/27/2019 Refused PPSV23 (Pnemovax) Unknown 03/07/2021 Refused Social History Tobacco Use: Social History Observation Description Date Details (start date - stop date) Never Smoker NA - NA Tobacco Use/Smoking Question Answer Notes Patient is a nonsmoker Additional Findings: Tobacco Non-User Cu rrent non-smoker, currently using no form of tobacco Alcohol Screen Question Answer Notes Did you have a drink contain ing alcohol in the past year? Yes How often did you have a dri nk containing alcohol in the past year? Monthly or less (1 point) How many drinks did you have on a typical day when you were drinking in the past year? 1 or 2 drinks (0 point) How often did you have 6 or more drinks on one occasion in the past year? 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) Active confirmed Problem 832576573 Coronary angiopl asty status (Z98.61) Active confirmed Problem 1735399 Arthritis (M19.90) Active confirmed Problem 835087924 Lumbar disc dise ase (M51.9) Active confirmed Problem 47263632 Essential hypert ension (I10) Active confirmed Problem 70727677 Type 2 diabetes mellitus without complication (E11.9) Active confirmed Problem 713276725 Non morbid obesi ty due to excess calories (E66.09) Active confirmed Problem 507373140 Morbid obesity d ue to excess calories (E66.01) Active confirmed Problem 1477781377015 Atherosclerosis of [place] coronary artery of [place] heart without angina pectoris (I25.10) Active confirmed Problem 683315493 Mild intermitten t asthma with acute exacerbation (J45.21) Active confirmed Problem 087391506 Vertigo (R42) Active confirmed Problem 56833850 Sciatica of left side (M54.32) Active confirmed Problem Obstructive sleep apnea (72331328) Obstructive sleep apnea (G47.33) Active confirmed Problem 284601778 Pure hypercholesterolemia (E78.00) Active confirmed Problem Plain X-ray of chest abnormal (finding) (5192136544) Abnormal chest xray (R93.89) Active confirmed Problem 649791820 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) Active confirmed Problem 152270073 Age-related inci pient cataract, unspecified laterality (H25.099) Active confirmed Vital Signs Blood pressure diastolic 60 mm Hg 10/09/2024 jesus ght is down 2 pounds since 06-30-24 Height 63 in 10/09/2024 weight is down 2 pounds since 06-30-24 Blood pressure systolic 132 mm Hg 10/09/2024 weig ht is down 2 pounds since 06-30-24 Weight 223 lbs 10/09/2024 weight is down 2 pounds since 06-30-24 BMI 39.50 kg/m2 10/09/2024 weight is down 2 pounds since 06-30-24 Encounters Encounter Location Date Provider Diagnosis Miguel Guzman MD [address] [place] [id number] 03/20/2024 Miguel Guzman Essential hypertensi on I10 ; Type 2 diabetes mellitus without complication E11.9 and Pure hypercholesterolemia E78.00 Miguel Guzman MD [address] [place] [id number] 06/15/2024 Miguel Guzman Encounter for immuni zation Z23 Miguel Guzman MD [address] [place] [id number] 10/02/2024 Miguel Guzman Type 2 diabetes mike itus without complication E11.9 and Pure hypercholesterolemia E78.00 Miguel Guzman MD [address] [place] [id number] 03/27/2024 Miguel Guzman Elevated LFTs R79.89 ; Essential hypertension I10 ; Type 2 diabetes mellitus without complication E11.9 ; Rheumatoid arthritis without rheumatoid factor, right elbow M06.021 ; Encounter for screening for depression Z13.31 and Age-related osteoporosis without current pathological fracture M81.0 Miguel Guzman MD [address] [place] [id number] 06/30/2024 Miguel Guzman Type 2 diabetes mike itus without complication E11.9 and Essential hypertension I10 Miguel Guzman MD [address] [place] [id number] 10/09/2024 Miguel Guzman Type 2 diabetes mike itus without complication E11.9 ; Arthritis M19.90 ; Pure hypercholesterolemia E78.00 and Essential hypertension I10 Miguel Guzman MD [address] [place], [place] [id number] 04/24/2024 Miguel Guzman MD [address] [place], [place] [id number] 06/06/2024 Miguel Guzman Essential hypertensi on I10 Miguel Guzman MD [address] [place] [id number] 12/14/2024 Miguel Guzman Assessments Encounter Date Diagnosis (ICD Code) Assessment Notes Treatment Notes Treatment Clinical Notes Section Notes 03/20/2024 Essential hypertensi on (ICD-10 - I10) 03/20/2024 Type 2 diabetes mellitus without complication (ICD-10 - E11.9) 06/15/2024 Encounter for immunization (ICD-10 - Z23) 10/02/2024 Type 2 diabetes mellitus without complication (ICD-10 - E11.9) 10/02/2024 Pure hypercholesterolemia (ICD-10 - E78.00) 03/27/2024 Elevated LFTs (ICD-1 0 - R79.89) send copy of labs to dr james/ LABS FAXED TO DR DAHIANA VALDIVIA 03/27/2024 Essential hypertensi on (ICD-10 - I10) bp well controlled, will continue current regiment 06/30/2024 Type 2 diabetes mellitus without complication (ICD-10 - E11.9) has improved even though she is gaining weight. encouraged diet, will continue current regiment 06/30/2024 Essential hypertensi on (ICD-10 - I10) stable, will continue curren regiment 10/09/2024 Type 2 diabetes mellitus without complication (ICD-10 - E11.9) here doing better. a1c is down. is starting to eat better.will cntinue current regiment 10/09/2024 Arthritis (ICD-10 - M19.90) jacquard card lacer increased celebrex to twice a day, will contiue current regiment 06/06/2024 Essential hypertensi on (ICD-10 - I10) 03/20/2024 Pure hypercholesterolemia (ICD-10 - E78.00) 03/27/2024 Type 2 diabetes mellitus without complication (ICD-10 - E11.9) a1c is doing well, will continue current regiment 10/09/2024 Pure hypercholesterolemia (ICD-10 - E78.00) stable, will continue current regiment is at goal 03/27/2024 Rheumatoid arthritis without rheumatoid factor, right elbow (ICD-10 - M06.021) followed by rheumatology, will continue current regiment 10/09/2024 Essential hypertensi on (ICD-10 - I10) stable, at goal, will continue current regiment 03/27/2024 Encounter for screen ing for depression (ICD-10 - Z13.31) negative screen 03/27/2024 Age-related osteoporosis without current pathological fracture (ICD-10 - M81.0) stable, will continue current regiment Plan Of Treatment Pending Test Test Name Order Date CT chest wo con 04/09/2022 Future Test Test Name Order Date BONE DENSITY DEXA 07/02/2020 Next Appt Details Provider Name:Miguel Alvares ier, 03/27/2025 08:00:00 AM, [address] [place] [address], [address], [phone], Provider Name:Miguel Alvares ier, 04/03/2025 10:30:00 AM, [address] [place] [address], [place] [address], [place], [place], [phone], Insurance Providers Payer Name Payer Address Payer Phone Subscriber Number Group Number Insured Name Patient Relationship to Insured Coverage Start Date Coverage End Date MEDICARE [address] [place] [address] [id number] Kathie Nelson Self - patient is the insured [facility] [address] [place] [address] [id number] Kathie Nelson Self - patient is the insured 8 Medical (General) History Medical History History ICD Code 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 colonoscopy - done 02/05/[address] Ponce Martinez
--- OUTSIDE RECORDS SUMMARY | 2025-01-30 10:10 | XMS_ITS ---
Author Organization Miguel Guzman MD Address [address] [place] [phone] Care Team Providers Care Irrigation System Operator Name Role Phone Miguel Guzman Primary Care Provider Medications Medication SIG (Take, Route, Frequency, Duration) Notes Start Date End Date Status Basaglar KwikPen 100 UNIT/ML 60 units Subcutaneous daily for 90 days 12/14/2024 Active Encounters Encounter Location Date Provider Diagnosis Miguel Guzman MD [address] [place] [id number] 12/14/2024 Miguel Guzman Plan Of Treatment Medication Medication Name Sig Start Date Stop Date Notes Basaglar KwikPen 100 UNIT/ML 60 units [place] bcutaneous daily for 90 days 12/14/2024 Next Appt Details Provider Name:Miguel Alvares ier, 03/27/2025 08:00:00 AM, [address], [address], [place], [phone], Provider Name:Miguel Alvares ier, 04/03/2025 10:30:00 AM, [address], [address], [place], [phone], Progress Notes * Kathie NELSON MDOB: 7 (69 yo F)Acc No.[id number]:12/14/2024 Patient:?Kathie NELSON M :1955???Age:69 Y???Sex:Female Address:[address] [place] [id number] * Refills? Start Basaglar KwikPen Solution Pen-injector, 100 UNIT/ML, Subcutaneous, 10, 60 units, daily, 90 days, Refills=11 * true * Date:? Generated for Xiomy escalona/Susannah/eTransmitting on:?01/30/2025 10:10 AM EDT
--- OUTSIDE RECORDS SUMMARY | 2025-01-30 10:10 | XMS_ITS ---
Author Organization Miguel Guzman MD Address [address] [place] [phone] Care Team Providers Care Roller Bearing Inspector Name Role Phone Miguel Guzman Primary Care [...] kg/m2 10/09/2024 weight is down 2 pounds [facility] e 10-4-24 Encounters Encounter Location Date Provider Diagnosis Miguel Guzman MD [address] [place], [place] [phone] 10/09/2024 Miguel Guzman Type 2 diabetes mike [...] current regiment 10/09/2024 Arthritis (ICD-10 - M19.90) map mounter increased celebrex to twice a day, will [...] to eat better.will cntinue current regiment Arthritis map mounter incre ased celebrex to twice a day, will contiue current regiment Pure hypercholesterolemia stable, will c ontinue current regiment is at goal Essential hypertension stable, at goal, will continue current regiment Next Appt Details Provider Name:Miguel kim, 03/27/2025 08:00:00 AM, [address] [place] [address], [address], [phone], Provider Name:Miguel kim, 04/03/2025 10:30:00 AM, [address] [place] [address], Suite [facility], [place], [place], [id number], Progress Notes * Kathie NELSON MDOB: (69 yo F)Acc No.[id number]:10/09/2024 Progress Notes Patient:?Kathie Nelson M Provider:?Miguel Guzman MD :1955???Age:69 Y???Sex:Female D ate:10/09/2024 Address:[address], [place], [phone] Subjective: * Chief Complaints: * ???6 MO F/U * HPI: ???Symptom(s):? patient is a 69 yo female here for 6 month follow up of diabetes. * ROS:?General/Constitutional:?Denies?Chills.?Denies?Fatigue.?Denies?Fever.?Denies?Headache.?ENT:?Denies?Sore throat.?Endocrine:?Denies?Difficulty sleeping.?Denies?Dizziness.?Denies?Excessive sweating.?Denies?Excessive thirst.?Denies?Frequent urination.?Respiratory:?Denies?Cough.?Denies?Shortness of breath at rest.?Denies?Shortness of breath with exertion.?Gastrointestinal:?Denies?Diarrhea.?Denies?Nausea.? * Medical History:? * Surgical History:? * Hospitalization/Major Diagno stic Procedure:? * Medications:?TakingFreeStyle Lite Test n/a Strip test blood sugar [...] A DAY Lantus SoloStar 100 UNIT/ML Solution Pen-injector 60 units Subcutaneous dailyValsartan-hydroCHLOROthiazide 80-12.5 MG Tablet [...] Solution Pen-injector 60 units Subcutaneous dailyTaking Valsartan-hydroCHLOROthiazide 80-12.5 MG Tablet TAKE 1 TABLET BY [...] reviewed and reconciled with the patient * Allergies:?trajenta: chest p ain/feels poorlyyes[Allergies Verified] Objective: * Vitals:?Ht: 63, Wt:223, BMI: 39.50, BP:132/60 weight is down 2 pounds since 06-30-24. * ???Past Orders: ???Lab:Lipid Panel with Refl ex (Order Date - 10/02/2024) (Collection Date - 10/02/2024) ? Value Reference Range ?Triglycerides 81 <150 - mg/dL ?Cholesterol 99 <200 - m g/dL ?LDL Cholesterol Calculated 25 <100 - mg/dL ?HDL Cholesterol 58 >40 - mg/dL ???Lab:Hemoglobin A1c (Order Date - 10/02/2024) (Collection Date - 10/02/2024) ? Value Reference Range ?Hemoglobin A1c % 6.7 H <6. 0 - % ?Estimated Average Glucose 146 - mg/dL ???Lab:Liver Panel (Order Da te 10/02/2024) (Collection Date - 10/02/2024) ? Value Reference Range ?Bilirubin Total 0.5 0.0- 1.0 - mg/dL ?Bilirubin Direct 0.3 0.0 -0.5 - mg/dL ?Aspartate Amino Transferase 46 H 5-31 - U/L ?Alanine Aminotransferase 37 H 0-31 - U/L ?Total Protein 7.4 6.5-8. 0 - g/dL ?Albumin Level 4.1 3.5-5. 0 - g/dL ?Alkaline Phosphatase 66 39-117 - U/L ???Lab:Glucose Fasting (Orde r Date - 10/02/2024) (Collection Date - 10/02/2024) ? Value Reference Range ?Glucose Fasting 70 60-9 9 - mg/dL * Examination: ???General Examination: ?GENERAL APPEARANCE:?alert, well hydrated, in no distress.?SKIN:?good turgor.?HEART:?regular rate and rhythm , no murmurs, rubs, gallops.?LUNGS:?no wheezes, rales, rhonchi , good air movement , clear to auscultation bilaterally.? Assessment: * Assessment: 1.?Type 2 diabetes mellitus without complication - E11.9 (Primary)?2.?Arthritis - M19.90?3.?Pure hypercholesterolemia - E78.00?4.?Essential hypertension - I10? Plan: * Treatment: 2.?Arthritis? Continue Celecoxib Capsule, 200 MG, 1 capsule with food, Orally, Twice a day;?Continue Enbrel Solution Prefilled Syringe, 25 MG/0.5ML, 0.5 ml, Subcutaneous, once a week.?? Notes: map mounter increased celebrex to twice a day, will contiue current regiment?? 3.?Pure hypercholesterolemia ? Continue Rosuvastatin Calcium Tablet, 40 MG, TAKE 1 TABLET BY MOUTH EVERY DAY.?? Notes: stable, will continue current regiment is at goal?? 4.?Essential hypertension? Continue Valsartan-hydroCHLOROthiazide Tablet, 80-12.5 MG, TAKE 1 TABLET BY MOUTH EVERY DAY FOR 90 DAYS;?Continue Metoprolol Succinate ER Tablet Extended Release 24 Hour, 50 MG, TAKE 1 TABLET BY MOUTH EVERY DAY, Orally, Once a day.?? Notes: stable, at goal, will continue current regiment?? * Procedure Codes:? * * Sign off status: Completed true * Provider:?Miguel Guzman MD Date:?0 10/09/2024 Generated for Natalyai iqra/Susannah/eTmarcelinasmitting on:?01/30/2025 10:10 AM EDT History and Physical Notes * [...]
--- OUTSIDE RECORDS SUMMARY | 2025-01-30 10:11 | XMS_ITS ---
Author Organization Miguel Guzman MD Address [address] [place] [phone] Care Team Providers Care Jewelry Department Supervisor Name Role Phone Miguel Guzman Primary Care Provider Results Component Value Reference Range Notes Liver Panel Reviewed date:10/02/2024 05:50:28 PM Interpretation: Performing Lab:[facility], [address] [place] [phone] Notes/Report: Bilirubin Total 0.5 0.0-1.0 mg/dL Bilirubin Direct 0.3 0.0-0.5 mg/dL Aspartate Amino Transferase 46 5-31 U/L Alanine Aminotransferase 37 0-31 U/L Total Protein 7.4 6.5-8.0 g/dL Albumin Level 4.1 3.5-5.0 g/dL Alkaline Phosphatase 66 39-117 U/L Glucose Fasting Reviewed date:10/02/2024 02:18:34 PM Interpretation: Performing Lab:[facility], [address] [place] [phone] Notes/Report: Glucose Fasting 70 60-99 mg/dL Lipid Panel with Reflex Reviewed date:10/02/2024 05:51:03 PM Interpretation: Performing Lab:[facility], [address] [place] [phone] Notes/Report: Triglycerides 81 <150 mg/dL Desirable Triglyceride: [...] A1c Reviewed date:10/02/2024 05:45:48 PM Interpretation: Performing Lab:[address] [phone] Notes/Report: Hemoglobin A1c % 6.7 <6.0 % [...] average glucose, using the formula of the W8T-Tzdarwr Average Glucose study (ADAG), Diabetes Care, Vol.31,#8, Apr. 2007 REASON FOR VISIT FASTING LIPIDS Encounters Encounter Location Date Provider Diagnosis Miguel Guzmna MD [address] [place], [place] [phone] 10/02/2024 Miguel Guzman Type 2 diabetes mike itus without complication E11.9 and Pure hypercholesterolemia E78.00 Assessments Encounter Date Diagnosis (ICD Code) Assessment Notes Treatment Notes Treatment Clinical Notes Section Notes 10/02/2024 Type 2 diabetes mike itus without complication (ICD-10 - E11.9) 10/02/2024 Pure hypercholesterolemia (ICD-10 - E78.00) Plan Of Treatment Next Appt Details Provider Name:Miguel kim, 03/27/2025 08:00:00 AM, [address], [address], [place], [place], [phone], Provider Name:Miguel kim, 04/03/2025 10:30:00 AM, [address], [address], [place], [place], [phone], Progress Notes * Kathie NELSON MDOB: (69 yo F)Acc No.[id number]:10/02/2024 Progress Note Patient:?Kathie NELSON M Provider:?Miguel Guzman MD :1955???Age:69 Y???Sex:Female D ate:10/02/2024 Address:[address] [place], [place] [phone] Subjective: * Chief Complaints: * ???1. FASTING LIPIDS. * Medical History:? Objective: * Vitals:? Assessment: * Assessment: 1.?Type 2 diabetes mellitus without complication - E11.9 (Primary)???2.?Pure hypercholesterolemia - E78.00??? Plan: * Treatment: 2.?Pure hypercholesterolemia ?LAB: Liver Panel (Collection Date & Time - 10/02/2024 08:30 AM) ?LAB: Glucose Fasting (Collection Date & Time - 10/02/2024 08:30 AM) ?LAB: Lipid Panel with Reflex (Collection Date & Time - 10/02/2024 08:30 AM) ?LAB: Hemoglobin A1c (Collection Date & Time - 10/02/2024 08:30 AM) * Procedure Codes:?06756 VENIP UNCT, ROUTINE* * * The named appointment provid er may or may not be the originator of this progress note, and it is not deemed complete until electronically signed by the appointment provider. Sign off status: Pending * Provider:?Miguel Guzman MD Date:?0 10/02/2024 Generated for Xiomy escalona/Susannah/Jamarcusitting on:?01/30/2025 10:10 AM EDT
== END 2025-01-30 09:41 | disposition home or self-care (01) ==
LOC: HO.HWS 09:20
PROVIDERS: PCP Internal Medicine; Visit Provider Obstetrics & Gynecology
DX: Z01.419 Encounter for gynecological examination (general) (routine) without abnormal findings (principal)
CPT/HCPCS: 99397; 99459

== ENCOUNTER → 2025-01-30 09:20 | Outpatient (BNVA) | payer MEDICARE, OTHER, SELFPAY | PROVIDERS: PCP Internal Medicine; Visit Provider Obstetrics & Gynecology | DX: Z01.419 Encounter for gynecological examination (general) (routine) without abnormal findings (principal) | CPT/HCPCS: 99397; 99459 ==

== ENCOUNTER 2025-03-20 07:49 | Outpatient (REF) | payer MEDICARE, OTHER, SELFPAY ==
--- OUTSIDE RECORDS SUMMARY | 2024-10-09 06:00 | XMS_ITS ---
Author Organization Miguel Guzman MD Address [address] [place] [phone] Care Team Providers Care Commercial Representative Name Role Phone Miguel Guzman Primary Care Provider [phone] Allergies Allergen (clinical drug ingredient) Drug/Non Drug [...] kg/m2 10/09/2024 weight is down 2 pounds [facility] e 10-4-24 Encounters Encounter Location Date Provider Diagnosis Miguel Guzman MD [address] [place], [place] [phone] 10/09/2024 Miguel Guzman Type 2 diabetes mike [...] current regiment 10/09/2024 Arthritis (ICD-10 - M19.90) 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 twice a day, will [...] to eat better.will cntinue current regiment Arthritis machinist general incre ased celebrex to twice a day, will contiue current regiment Pure hypercholesterolemia stable, will c ontinue current regiment is at goal Essential hypertension stable, at goal, will continue current regiment Next Appt Details Provider Name:Miguel kim, 03/27/2025 08:00:00 AM, [address] [place] [address], [address], [phone], Provider Name:Miguel kim, 04/03/2025 10:30:00 AM, [address] [place] [address], [address], [phone], Progress Notes * Kathie NELSON MDOB: (69 yo F)Acc No.[id number]:10/09/2024 Progress Notes Patient: Sandra hilaryKathie coats Provider: Audelia Guzman MD :1955 A ge:69 Y S ex:Female Date:10/09/2024 Address: [address] [facility] [place] [place], [id number] Subjective: * Chief Complaints: * 6 MO [...] Fasting (Order Date - 10/02/2024) (Collection Date - 10/02/2024) Value Reference Range Glucose Fasting 70 [...] 0.5 ml, Subcutaneous, once a week. Notes: 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 twice a day, will [...] 10/09/2024 Generated for Xiomy escalona/Susannah/Jamarcusitting on: 0 03/20/2025 07:53 AM EDT History and Physical Notes * [...]
--- NOTE | ~2025-03-20 | MM_ITS ---
EXAMINATION: DXA BONE DENSITY AXIAL HISTORY: Z78.0 - Asymptomatic menopausal state TECHNIQUE: Hair Scynce Dual energy absorptiometry (DEXA) of the lumbar spine, total left hip, and femoral neck was performed. COMPARISON: Comparison is made with the prior examination dated 09/06/2020. FINDINGS: The bone mineral density of the lumbar spine is 0.925, corresponding to a T-score of -2.1, and a Z-score of -1.7. This is indicative of osteopenia. This represents a BMD change of 12.3% compared to the prior exam. This is statistically significant. The bone mineral density of the left total hip is 0.892, corresponding to a T-score of -0.9, and a Z-score of -0.4. This is indicative of normal bone mineral density. This represents a BMD change of 17.2% compared to the prior exam. This is statistically significant. The bone mineral density of the left femoral neck is 0.762, corresponding to a T-score of -2.0, and a Z-score of -1.2. This is indicative of osteopenia. This represents a BMD change of 34.4% compared to the prior exam. FRACTURE RISK: The FRAX index suggests a ten year probability of major osteoporotic fracture of 12.7%, and of hip fracture 2.1%. MM/XR DEXA axial skeleton IMPRESSION: Based on bone mineral density, and according to World Health Organization (WHO) criteria, the diagnosis is consistent with osteopenia. All bone density values are in grams per centimeter squared (g/cm2). Statistically, 68% of repeat scans fall within 1 SD (+/- 0.010 g/cm2 for AP spine L1-L4) and 1 SD (+/- 0.012 g/cm2 for femur total) FRAX is a trademark of the [employer], a World Health Organization (WHO) Collaborating Center. Electronically signed by: Francois Chen MD 03/20/2025 08:22 AM EDT
== END 2025-03-20 07:50 | disposition home or self-care (01) ==
LOC: HO.MAMMO 07:49
PROVIDERS: PCP Internal Medicine; Visit Provider Obstetrics & Gynecology
DX: Z13.820 Encounter for screening for osteoporosis (principal); Z78.0 Asymptomatic menopausal state
CPT/HCPCS: 77080

== ENCOUNTER → 2025-03-20 08:15 | Outpatient (BNV) | payer MEDICARE, OTHER, SELFPAY | PROVIDERS: PCP Internal Medicine; Visit Provider Radiology Diagnostic Radiology | DX: E28.39 Other primary ovarian failure (principal) | CPT/HCPCS: 77080 ==

== ENCOUNTER 2025-03-27 08:00 | Outpatient (REF) | payer MEDICARE, OTHER, SELFPAY ==
--- OUTSIDE RECORDS SUMMARY | 2024-10-09 06:00 | XMS_ITS ---
Author Organization Miguel Guzman MD Address [address] [place] [id number] Care Team Providers Care Tie Maker Name Role Phone Miguel Guzman Primary Care Provider [phone] Allergies Allergen (clinical drug ingredient) Drug/Non Drug Allergy documented on EMR Reaction Allergy Type Onset Date Status trajenta (uncoded) chest pain/fe els poorly Allergy Active REASON FOR VISIT 6 MO F/U Medications Medication SIG (Take, Route, Frequency, Duration) Notes Start Date End Date Status Advair HFA 115-21 MCG/ACT INHALE 2 PUFFS BY MOUTH TWICE DAILY for 90 Active Alendronate Sodium 70 MG 1 tablet 30 min utes before the first food, beverage or medicine of the day with plain water Orally weekly Active OneTouch Ultra - TEST BLOOD SUGAR TWI CE A DAY for 90 Active FreeStyle Lite Test n/a test blood sugar once a day n/a once/day for 90 days Active FreeStyle Lite Test TEST BLOOD SUGAR ONC E A DAY for 90 days Active Enbrel 25 MG/0.5ML 0.5 ml Subcutaneous once a week Active Metoprolol Succinate ER 50 MG TAKE 1 TABLET BY MOUTH EVERY DAY Orally Once a day Active metFORMIN HCl 500 MG TAKE 2 TABLET BY MO UTH IN THE MORNING AND 1 TABLET IN THE AFTERNOON Orally Once a day Active Tylenol PM Extra Strength 500-25 MG 2 tablets at bedtime as needed Orally Once a day Active Rosuvastatin Calcium 40 MG TAKE 1 TABLET BY MOUTH EVERY DAY Active Valsartan-hydroCHLOROthiaz nima 80-12.5 MG TAKE 1 TABLET BY MOUTH EVERY DAY FOR 90 DAYS Active Methotrexate 1 tab Oral Active Tylenol Extra Strength 500 MG 2 tablets as needed Orally every 6 hrs Active Celecoxib 200 MG 1 capsule with food Orally Twice a day Active Lantus SoloStar 100 UNIT/ML 60 units Subcutaneous daily 12/30/2023 Active BD Pen Needle Mini U/F 31G X 5 MM USE DIRECTED DAILY for 90 Active Albuterol Sulfate (2.5 MG/3ML) 0.083% INHALE 1 VIAL VIA NEBULIZER EVERY 6 HOURS EVERY 4 HRS INHALATION 10 DAYS INHALATION EVERY 6 HRS 90 DAYS for 20 Active Vital Signs Blood pressure systolic 132 mm Hg 10/09/19 25 Blood pressure diastolic 60 mm Hg 025 Height 63 in 10/09/2024 Weight 223 lbs 10/09/2024 BMI 39.50 kg/m2 10/09/2024 weight is down 2 pounds [facility] e 10-4-24 Encounters Encounter Location Date Provider Diagnosis Miguel Guzman MD [address] [place], [place] [phone] 10/09/2024 Miguel Guzman Type 2 diabetes mike itus without complication E11.9 ; Arthritis M19.90 ; Pure hypercholesterolemia E78.00 and Essential hypertension I10 Assessments Encounter Date Diagnosis (ICD Code) Assessment Notes Treatment Notes Treatment Clinical Notes Section Notes 10/09/2024 Type 2 diabetes mellitus without complication (ICD-10 - E11.9) here doing better. a1c is down. 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 administrator increased celebrex to twice a day, will contiue current regiment 10/09/2024 Pure hypercholesterolemia (ICD-10 - E78.00) stable, will continue current regiment is at goal 10/09/2024 Essential hypertensi on (ICD-10 - I10) stable, at goal, will continue current regiment Plan Of Treatment Medication Medication Name Sig Start Date Stop Date Notes Enbrel 25 MG/0.5ML 0.5 ml Subcutaneous once a week Metoprolol Succinate ER 50 MG TAKE 1 TAB LET BY MOUTH EVERY DAY Orally Once a day metFORMIN HCl 500 MG TAKE 2 TABLET BY MO UTH IN THE MORNING AND 1 TABLET IN THE AFTERNOON Orally Once a day Rosuvastatin Calcium 40 MG TAKE 1 TABLET BY MOUTH EVERY DAY Valsartan-hydroCHLOROthiazid e 80-12.5 MG TAKE 1 TABLET BY MOUTH EVERY DAY FOR 90 DAYS Celecoxib 200 MG 1 capsule with food Orally Twice a day Lantus SoloStar 100 UNIT/ML 60 units Subcutaneous daily Treatment Notes Assessment Notes Type 2 diabetes mellitus without complic ation here doing better. a1c is down. is starting to eat better.will cntinue current regiment Arthritis aix system administrator incre ased celebrex to twice a day, will contiue current regiment Pure hypercholesterolemia stable, will c ontinue current regiment is at goal Essential hypertension stable, at goal, will continue current regiment Next Appt Details Provider Name:Miguel gómezr, 04/03/2025 10:30:00 AM, [address] [place] [address], [address], [phone], Progress Notes * Kathie NELSON MDOB: 7 (69 yo F)Acc No.[id number]:10/09/2024 Progress Notes Patient: Sandra hale Kathie Flores Provider: Audelia Guzman MD :1955 A ge:69 Y S ex:Female Date:10/09/2024 Address:[address] [place], [place] [phone] Subjective: * Chief Complaints: * 6 MO F/U * HPI: S ymptom(s): patient is a 69 yo female here for 6 month follow up of diabetes. * ROS: G eneral/Constitutional: Denies C hills. D enies F atigue. D enies F ever. D enies H eadache. E NT: Denies S ore throat. E ndocrine: Denies D ifficulty sleeping. D enies D izziness.?Denies E xcessive sweating. D enies E xcessive thirst. D enies F requent urination. R espiratory: Denies C ough. D enies S hortness of breath at rest. D enies S hortness of breath with exertion. G astrointestinal: Denies D iarrhea. D enies N ausea. * Medical History: * Surgical History: * Hospitalization/Major Diagno stic Procedure: * Medications: T akingFreeStyle Lite Test n/a Strip test blood sugar once a day n/a once/dayFreeStyle Lite Test Strip TEST BLOOD SUGAR ONCE A DAY Advair HFA 115-21 MCG/ACT Aerosol INHALE 2 PUFFS BY MOUTH TWICE DAILY Alendronate Sodium 70 MG Tablet 1 tablet 30 minutes before the first food, beverage or medicine of the day with plain water Orally weeklyCelecoxib 200 MG Capsule 1 capsule with food Orally Twice a dayOneTouch Ultra - Strip TEST BLOOD SUGAR TWICE A DAY Lantus SoloStar 100 UNIT/ML Solution Pen- injector 60 units Subcutaneous dailyValsartan-hydroCHLOROthiazide 80-12.5 MG Tablet TAKE 1 TABLET BY MOUTH EVERY DAY FOR 90 DAYS Metoprolol Succinate ER 50 MG Tablet Extended Release 24 Hour TAKE 1 TABLET BY MOUTH EVERY DAY Orally Once a daymetFORMIN HCl 500 MG Tablet TAKE 2 TABLET BY MOUTH IN THE MORNING AND 1 TABLET IN THE AFTERNOON Orally Once a dayRosuvastatin Calcium 40 MG Tablet TAKE 1 TABLET BY MOUTH EVERY DAY BD Pen Needle Mini U/F 31G X 5 MM Miscellaneous USE DIRECTED DAILY Albuterol Sulfate (2.5 MG/3ML) 0.083% Nebulization Solution INHALE 1 VIAL VIA NEBULIZER EVERY 6 HOURS EVERY 4 HRS INHALATION 10 DAYS INHALATION EVERY 6 HRS 90 DAYS Enbrel 25 MG/0.5ML Solution Prefilled Syringe 0.5 ml Subcutaneous once a weekMethotrexate 1 tab Oral Tylenol Extra Strength 500 MG Tablet 2 tablets as needed Orally every 6 hrsTylenol PM Extra Strength 500-25 MG Tablet 2 tablets at bedtime as needed Orally Once a dayMedication List reviewed and reconciled with the patientTaking FreeStyle Lite Test n/a Strip test blood sugar once a day n/a once/dayTaking FreeStyle Lite Test Strip TEST BLOOD SUGAR ONCE A DAY Taking Advair HFA 115-21 MCG/ACT Aerosol INHALE 2 PUFFS BY MOUTH TWICE DAILY Taking Alendronate Sodium 70 MG Tablet 1 tablet 30 minutes before the first food, beverage or medicine of the day with plain water Orally weeklyTaking Celecoxib 200 MG Capsule 1 capsule with food Orally Twice a dayTaking OneTouch Ultra - Strip TEST BLOOD SUGAR TWICE A DAY Taking Lantus SoloStar 100 UNIT/ML Solution Pen-injector 60 units Subcutaneous dailyTaking Valsartan-hydroCHLOROthiazide 80- 12.5 MG Tablet TAKE 1 TABLET BY MOUTH EVERY DAY FOR 90 DAYS Taking Metoprolol Succinate ER 50 MG Tablet Extended Release 24 Hour TAKE 1 TABLET BY MOUTH EVERY DAY Orally Once a dayTaking metFORMIN HCl 500 MG Tablet TAKE 2 TABLET BY MOUTH IN THE MORNING AND 1 TABLET IN THE AFTERNOON Orally Once a dayTaking Rosuvastatin Calcium 40 MG Tablet TAKE 1 TABLET BY MOUTH EVERY DAY Taking BD Pen Needle Mini U/F 31G X 5 MM Miscellaneous USE DIRECTED DAILY Taking Albuterol Sulfate (2.5 MG/3ML) 0.083% Nebulization Solution INHALE 1 VIAL VIA NEBULIZER EVERY 6 HOURS EVERY 4 HRS INHALATION 10 DAYS INHALATION EVERY 6 HRS 90 DAYS Taking Enbrel 25 MG/0.5ML Solution Prefilled Syringe 0.5 ml Subcutaneous once a weekTaking Methotrexate 1 tab Oral Taking Tylenol Extra Strength 500 MG Tablet 2 tablets as needed Orally every 6 hrsTaking Tylenol PM Extra Strength 500-25 MG Tablet 2 tablets at bedtime as needed Orally Once a dayMedication List reviewed and reconciled with the patient * Allergies: t rajenta: chest pain/feels poorlyyes[Allergies Verified] Objective: * Vitals: H t: 63, Wt:223, BMI:39.50, BP:132/60 weight is down 2 pounds since 06-30-24. * P ast Orders: L ab:Lipid Panel with Reflex (Order Date - 10/02/2024) (Collection Date - 10/02/2024) Value Reference Range Triglycerides 81 <150 - mg/dL Cholesterol 99 <200 - mg/dL LDL Cholesterol Calculated 25 <100 - mg/dL HDL Cholesterol 58 >40 - mg/dL L ab:Hemoglobin A1c (Order Date - 10/02/2024) (Collection Date - 10/02/2024) Value Reference Range Hemoglobin A1c % 6.7 H <6.0 - % Estimated Average Glucose 146 - mg/dL L ab:Liver Panel (Order Date - 10/02/2024) (Collection Date - 10/02/2024) Value Reference Range Bilirubin Total 0.5 0.0-1.0 - mg/dL Bilirubin Direct 0.3 0.0-0.5 - mg/dL Aspartate Amino Transferase 46 H 5-31 - U/L Alanine Aminotransferase 37 H 0-31 - U/L Total Protein 7.4 6.5-8.0 - g/dL Albumin Level 4.1 3.5-5.0 - g/dL Alkaline Phosphatase 66 39-117 - U/L L ab:Glucose Fasting (Order Date - 10/02/2024) (Collection Date 10/02/2024) Value Reference Range Glucose Fasting 70 60-99 - mg/dL * Examination: G eneral Examination: GENERAL APPEARANCE: a lert, well hydrated, in no distress.? SKIN: g ood turgor. HEART: r egular rate and rhythm , no murmurs, rubs, gallops. LUNGS: n o wheezes, rales, rhonchi , good air movement , clear to auscultation bilaterally. Assessment: * Assessment: 1. T ype 2 diabetes mellitus without complication - E11.9 (Primary) 2 . A rthritis - M19.90 3 . P ure hypercholesterolemia - E78.00 4 . E ssential hypertension - I10 Plan: * Treatment: 2. A rthritis Continue Celecoxib Capsule, 200 MG, 1 capsule with food, Orally, Twice a day; C ontinue Enbrel Solution Prefilled Syringe, 25 MG/0.5ML, 0.5 ml, Subcutaneous, once a week. Notes: aix system administrator increased celebrex to twice a day, will contiue current regiment 3. P ure hypercholesterolemia Continue Rosuvastatin Calcium Tablet, 40 MG, TAKE 1 TABLET BY MOUTH EVERY DAY. Notes: stable, will continue current regiment is at goal 4. E ssential hypertension Continue Valsartan-hydroCHLOROthiazide Tablet, 80-12.5 MG, TAKE 1 TABLET BY MOUTH EVERY DAY FOR 90 DAYS; C ontinue Metoprolol Succinate ER Tablet Extended Release 24 Hour, 50 MG, TAKE 1 TABLET BY MOUTH EVERY DAY, Orally, Once a day. Notes: stable, at goal, will continue current regiment * Procedure Codes: * * Sign off status: Completed true * Provider: Audelia Guzman MD Date: 0 10/09/2024 Generated for Xiomy escalona/Susannah/Jamarcusitting on: 0 03/27/2025 11:37 AM EDT History and Physical Notes * HPI (History of Present Illness) Category Sub-Category Detail Notes Category Not es Symptom(s) patient is a 69 yo female here for 6 month follow up of diabetes Examination Category Sub-Category Detail Notes Category Not es General Examination GENERAL APPEARANCE: alert, w ell hydrated, in no distress HEART: regular rate and rhy thm , no murmurs, rubs, gallops LUNGS: no wheezes, rales, r honchi , good air movement , clear to auscultation bilaterally SKIN: good turgor
[2025-03-27 10:31] LABS: MANUAL DIFF FLAG NO
[2025-03-27 10:54] LABS: Appearance Urine Clear; Glucose Urine UA Negative (Negative); PH 5.0 (5.0-9.0); Specific Gravity - Urine 1.020 (1.005-1.025); UMIC TRIGGER UACC YES
[2025-03-27 10:58] LABS: Hematocrit 39.0 % (37.0-47.0); Hemoglobin 12.9 g/dl (12.0-16.0); Imm Gran Abs Auto 0.02 X10*3/uL (0.00-0.03); Imm Gran Pct Auto 0.2 % (0.0-0.4); Lymphocytes Absolute Auto 3.3 X10*3/uL (1.2-4.9); Mean Corpuscular HGB Conc 33.1 g/dl (31.0-35.0); Mean Corpuscular Hemoglobin 30.6 pg (27.0-33.0); Mean Corpuscular Volume 92.4 fL (80.0-98.0); NRBC Abs Auto 0.000 X10*3/uL (0.0-0.012); NRBC Pct Auto 0.0 /100WBC (0.0-0.2); Platelet Count 342 X10*3/uL (160-400); Red Blood Count 4.22 X10*6/uL (4.20-5.50); White Blood Count 9.4 X10*3/uL (4.8-10.8)
[2025-03-27 11:11] LABS: Hemoglobin A1C 176.2099 umol/L; Total Hemoglobin (HGBA1C) 3396.0186 umol/L
[2025-03-27 11:22] LABS: Microalbum/Creatinine Ratio Ur 178.3 ug/mg cr (<30)
[2025-03-27 11:37] LABS: Alanine Aminotransferase 38 U/L (0-31); Albumin Level 4.3 g/dL (3.5-5.0); Alkaline Phosphatase 62 U/L (39-117); Anion Gap 12 (12-20); Aspartate Amino Transferase 40 U/L (5-31); Blood Urea Nitrogen 17 mg/dL (9-16); Calcium 9.8 mg/dL (8.4-10.2); Carbon Dioxide 26 mmol/L (22-29); Chloride 107 mmol/L (96-108); Cholesterol 98 mg/dL (<200); Estimated Glomerular Filt Rate > 60; HDL Cholesterol 56 mg/dL (>40); Potassium 3.6 mmol/L (3.3-5.1); Sodium 141 mmol/L (135-145); Total Protein 7.1 g/dL (6.5-8.0); Triglycerides 107 mg/dL (<150)
--- OUTSIDE RECORDS SUMMARY | 2025-03-27 11:38 | XMS_ITS | Patient Health Record ---
Author Organization [facility] Address [address] [place] [phone] Care Team Providers Care Division Service Manager Name Role Phone Francois Chaudhari Unavailable [phone] Reason For Referral No Information Plan Of Treatment No Information
== END 2025-03-27 08:01 | disposition home or self-care (01) ==
LOC: HO.LNP 08:00
PROVIDERS: Visit Provider Internal Medicine
DX: I10 Essential (primary) hypertension (principal); E11.9 Type 2 diabetes mellitus without complications; E78.00 Pure hypercholesterolemia, unspecified
CPT/HCPCS: 80053; 80061; 81001; 82043; 82570; 83036; 85025

== ENCOUNTER 2025-03-28 11:26 | Outpatient (AMB) | payer MEDICARE, OTHER, SELFPAY ==
--- OUTSIDE RECORDS SUMMARY | 2024-10-09 06:00 | XMS_ITS ---
Author Organization Miguel Guzman MD Address [address] [place] [phone] Care Team Providers Care Jet Mechanic Name Role Phone Miguel Guzman Primary Care Provider [phone] Allergies Allergen (clinical drug ingredient) Drug/Non Drug [...] kg/m2 10/09/2024 weight is down 2 pounds [facility] e 10-4-24 Encounters Encounter Location Date Provider Diagnosis Miguel Guzman MD [address] [place], [place] [phone] 10/09/2024 Miguel Guzman Type 2 diabetes mike [...] current regiment 10/09/2024 Arthritis (ICD-10 - M19.90) development executive increased celebrex to twice a day, will [...] to eat better.will cntinue current regiment Arthritis development executive incre ased celebrex to twice a day, will contiue current regiment Pure hypercholesterolemia stable, will c ontinue current regiment is at goal Essential hypertension stable, at goal, will continue current regiment Next Appt Details Provider Name:Miguel gómezr, 04/03/2025 10:30:00 AM, [address] [place] [address], [address], [phone], Progress Notes * Kathie NELSON MDOB: 7 (69 yo F)Acc No.[id number]:10/09/2024 Progress Notes Patient: Sandra hale Kathie Flores Provider: Audelia Gzuman MD :1955 A ge:69 Y S ex:Female Date:10/09/2024 Address:[address] [place], [place] [phone] Subjective: * Chief Complaints: * 6 MO [...] 0.5 ml, Subcutaneous, once a week. Notes: development executive increased celebrex to twice a day, will [...] 10/09/2024 Generated for Xiomy escalona/Susannah/Jamarcusitting on: 0 03/28/2025 12:14 PM EDT History and Physical Notes * HPI [...]
--- NOTE | 2025-03-28 11:28 | A.OFFVIS_ITS ---
Vital Signs 03/28/25 11:32 Height 5 ft 1 in Weight 229 lb BMI 43.3 Intake Visit Reasons: dexa follow up per Dr. cadet Allergies No Known Allergies Allergy (Verified 01/30/25 09:31) HPI Comments Details: Insert history DEXA follow-up which showed the following: ' The bone mineral density of the lumbar spine is 0.925, corresponding to a T-score of -2.1, and a Z-score of -1.7. This is indicative of osteopenia. This represents a BMD change of 12.3% compared to the prior exam. This is statistically significant. The bone mineral density of the left total hip is 0.892, corresponding to a T-score of -0.9, and a Z-score of -0.4. This is indicative of normal bone mineral density. This represents a BMD change of 17.2% compared to the prior exam. This is statistically significant. The bone mineral density of the left femoral neck is 0.762, corresponding to a T-score of -2.0, and a Z-score of -1.2. This is indicative of osteopenia. This represents a BMD change of 34.4% compared to the prior exam. FRACTURE RISK: The FRAX index suggests a ten year probability of major osteoporotic fracture of 12.7%, and of hip fracture 2.1%. [facility] Medical History Wears dentures Cataract Diabetes HTN (hypertension) CAD (coronary artery disease) Rheumatoid arthritis Asthma Surgical History Hx of right cataract extraction Hx of hysterectomy Hx of colonoscopy Hx of cholecystectomy Stented coronary artery Family History Father HTN (hypertension) Heart attack Stomach cancer Mother HTN (hypertension) Brother Heart disease Sister Heart disease Social History Household Members: Spouse Housing: House Are you a primary hearing healthcare practitioner to a significant other at home: No Do you presently have visiting nurse or other home services: No Alcohol intake: never Comment: aware of trip hazard Patient Tobacco Use Status: Never used Tobacco Current occupational status: retired Sexual orientation: Straight/Heterosexual Gender identity: Female Review of Systems Const All systems reviewed & are unremarkable except as noted in HPI and below Reports as per HPI and Reports no additional complaints GI Reports no additional complaints Reports no additional complaints Physical Exam Vital Signs: BMI result Body Mass Index 43.3 Assessment & Plan Assessment & Plan (1) Osteopenia: Code(s): M85.80 - Other specified disorders of bone density and structure, unspecified site Category: Medical Plan: Discussed with the patient the DEXA results and FRAX risk. FRAX risk and T score showed no evidence of osteoporosis. Discussed with the patient all the options for osteoporosis prevention including lifestyle modifications including Ca+D supplements 1200 mg po qd/800 MIU, Weight bearing exercises and proteine supplements. The patient verbalized understanding and agreed plan will repeat DEXA in 2 years. Coding Level of Care Code Est Pt Level 3 (72625) Diagnoses Osteopenia M85.80
[2025-03-28 11:32] VITALS: BMI 43.3
--- OUTSIDE RECORDS SUMMARY | 2025-03-28 12:14 | XMS_ITS | Patient Health Record ---
Author Organization [facility] Address [address] [place] [phone] Care Team Providers Care Toddler Lead Teacher Name Role Phone Francois Chaudhari Unavailable [phone] Reason For Referral No Information Plan Of Treatment No Information
== END 2025-03-28 11:42 | disposition home or self-care (01) ==
LOC: HO.HWS 11:26
PROVIDERS: PCP Internal Medicine; Visit Provider Obstetrics & Gynecology
DX: M85.80 Other specified disorders of bone density and structure, unspecified site (principal)
CPT/HCPCS: 99213

== ENCOUNTER → 2025-03-28 11:26 | Outpatient (BNVA) | payer MEDICARE, OTHER, SELFPAY | PROVIDERS: PCP Internal Medicine; Visit Provider Obstetrics & Gynecology | DX: M85.852 Other specified disorders of bone density and structure, left thigh (principal) | CPT/HCPCS: 99212 ==